=== PATIENT | female | born 2000 | race Caucasian/White ===

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

== ENCOUNTER 2021-05-07 16:37 | Emergency (ER) | payer OTHER ==
[~2021-05-07] VITALS: Ht 170.2 cm; Wt 54.8 kg
[2021-05-07 16:44] VITALS: BP 132/78
--- OUTSIDE RECORDS SUMMARY | 2021-05-07 16:44 | CCD ---
Author Author [facility] Organization [facility] Address Unknown Phone Unavailable Care Team Providers Care Harness Mender Name Role Phone MitulWilbur chowdhurynzie Unavailable PROBLEMS Type Condition ICD9-CM Code [id number] Code Onset Dates Condition S tatus W/U Status Risk SNOMED Code Notes Problem Complex cyst of right ovary N83.291 Active conf irmed [id number] Problem History of anemia Z86.2 Active confirmed 27 0237081 Problem Iron deficiency anemia, unspecified iron deficiency an emia type D50.9 Active confirmed 73089828 Problem Vitamin D deficiency E55.9 Active confirmed 50878868 ALLERGIES No Known Allergies ENCOUNTERS from 2001 to 2021-03-12 Encounter Location Date Provider Diagnosis [facility] [address] [facility] [phone] [place] [phone] Feb, Estela Bauman IMMUNIZATIONS Vaccine Route Administration Date Status Influenza Pharmacy Given Unknown Apr 02, 2019 Adminis tered SOCIAL HISTORY Tobacco Use: Social History Observation Description Date Details (start date - stop date) Never Smoker Sex Assigned At : Social History Observation Description Sex Assigned At Unknown Education: Question Answer Notes Level of Education: High School currently Audit Question Answer Notes Total Score: 0 Interpretation: Alcohol Education Language: Question Answer Notes Languages spoken: Thai Taoism: Question Answer Notes Taoism No sikh beliefs that would impact health care. Domestic Violence: Question Answer Notes Status: Single Sexual Hx: Question Answer Notes Had sex in the last 12 months (vaginal, oral, or anal)? No LMP: 10/01/2018 Have you ever had an STD? No Drug and Alcohol Question Answer Notes Total Score: 0 Interpretation: No problems reported Alcohol Screening: Question Answer Notes Did you have a drink containing alcohol in the past year? No Points 0 Interpretation Negative Tobacco Use: Question Answer Notes Are you a: never smoker never smoker REASON FOR REFERRAL No Information VITAL SIGNS No information MEDICATIONS Medication SIG (Take, Route, Frequency, Duration) Notes Start Da te End Date Status Ferrous Sulfate 325 (65 Fe) MG 1 tablet Orally Once a day for 30 day(s) Sep, Not-Taking Depo-Provera 150 MG/ML 1 ml Intramuscular for 30 day(s) q3 months Active Vitamin D 1000 UNIT 1 tablet Orally Once a day for 30 day(s) Not-Taking PROCEDURES No Information RESULTS No Results REASON FOR VISIT Letter for Supervisor [place] MEDICAL (GENERAL) HISTORY Type Description Date Medical History No overnight hospitalizations. Medical History Has history of sleep apnea t est in [place] because of snoring that self reports as normal Medical History No history of NICU stay or prematurity Surgical History No know Surgical history Goals Section No Information Health Concerns No Information MEDICAL EQUIPMENT No Information MENTAL STATUS No Information FUNCTIONAL STATUS No Information ASSESSMENTS No Information PLAN OF TREATMENT No Information Insurance Providers Payer Name Payer Address Payer Phone Insured Name Patient Relati onship to Insured Coverage Start Date Coverage End Date [facility] DEPT [facility] [phone] [id number] [phone] DELIO BURCIAGA self
--- OUTSIDE RECORDS SUMMARY | 2021-05-07 16:45 | CCD ---
Author Author [facility] Organization [facility] Address Unknown Phone Unavailable Care Team Providers Care Stationary Fireman Name Role Phone Nwogu, U Zac DO Unavailable Unavailable Nwogu, U Zac DO Unavailable Unavailable Nwogu, U Zac DO Unavailable Unavailable Nwogu, U Zac DO Unavailable Unavailable Nwogu, U Zac DO Unavailable Unavailable Nwogu, U Zac DO Unavailable Unavailable Nwogu, U Zac DO Unavailable Unavailable Nwogu, U Zac DO Unavailable Unavailable Nwogu, U Zac DO Unavailable Unavailable Nwogu, U Azc DO Unavailable Unavailable Nwogu, U Zac DO Unavailable Unavailable Nwogu, U Zac DO Unavailable Unavailable Nwogu, U Zac DO Unavailable Unavailable Nwogu, U Zac DO Unavailable Unavailable Nwogu, U Zac DO Unavailable Unavailable Nwogu, U Zac DO Unavailable Unavailable Nwogu, U Zac DO Unavailable Unavailable Nwogu, U Zac DO Unavailable Unavailable Nwogu, U Zac DO Unavailable Unavailable Nwogu, U Zac DO Unavailable Unavailable Nwogu, U Zac DO Unavailable Unavailable Nwogu, U Zac DO Unavailable Unavailable Nwogu, U Zac DO Unavailable Unavailable Nwogu, U Zac DO Unavailable Unavailable Nwogu, U Zac DO Unavailable Unavailable Nwogu, U Zac DO Unavailable Unavailable Nwogu, U Zac DO Unavailable Unavailable Nwogu, U Zac DO Unavailable Unavailable Nwogu, U Zac DO Unavailable Unavailable Nwogu, U Zac DO Unavailable Unavailable Nwogu, U Zac DO Unavailable Unavailable Nwogu, U Zac DO Unavailable Unavailable Nwogu, U Zac DO Unavailable Unavailable Nwogu, U Zac DO Unavailable Unavailable Nwogu, U Zac DO Unavailable Unavailable Nwogu, U Zac DO Unavailable Unavailable Nwogu, U Zac DO Unavailable Unavailable Nwogu, U Zac DO Unavailable Unavailable Nwogu, U Zac DO Unavailable Unavailable Nwogu, U Zac DO Unavailable Unavailable Faustino Mujica MD Unavailable Unavailable Faustino Mujica MD Unavailable Unavailable Faustino Mujica MD Unavailable Unavailable Faustino Mujica MD Unavailable Unavailable Faustino Mujica MD Unavailable Unavailable Faustino Mujica MD Unavailable Unavailable ZEGIL, D ALESSANDRA TITLE I MATH TUTOR Unavailable Unavailable ZEGIL, D ALESSANDRA TITLE I MATH TUTOR Unavailable Unavailable ZEGIL, D ALESSANDRA TITLE I MATH TUTOR Unavailable Unavailable Lor F Brown, F TITLE I MATH TUTOR TITLE I MATH TUTOR Unavailable Unavailable Lor F Brown, F TITLE I MATH TUTOR TITLE I MATH TUTOR Unavailable Unavailable Mitul, R Estela TITLE I MATH TUTOR Unavailable Unavailable Mitul, R Estela TITLE I MATH TUTOR Unavailable Unavailable Mitul, R Estela TITLE I MATH TUTOR Unavailable Unavailable Mtiul, R Estela TITLE I MATH TUTOR Unavailable Unavailable Mitul, R Estela TITLE I MATH TUTOR Unavailable Unavailable Mitul, R Estela TITLE I MATH TUTOR Unavailable Unavailable Mitul, R Estela TITLE I MATH TUTOR Unavailable Unavailable Mitul, R Estela TITLE I MATH TUTOR Unavailable Unavailable Mitul, R Estela TITLE I MATH TUTOR Unavailable Unavailable Mitul, R Estela TITLE I MATH TUTOR Unavailable Unavailable Mitul, R Estela TITLE I MATH TUTOR Unavailable Unavailable Mitul, R Estela TITLE I MATH TUTOR Unavailable Unavailable Mitul, R Estela TITLE I MATH TUTOR Unavailable Unavailable Mitul, R Estela TITLE I MATH TUTOR Unavailable Unavailable Mitul, R Estela TITLE I MATH TUTOR Unavailable Unavailable Mitul, R Estela TITLE I MATH TUTOR Unavailable Unavailable Mitul, R Estela TITLE I MATH TUTOR Unavailable Unavailable Mitul, R Estela TITLE I MATH TUTOR Unavailable Unavailable Mitul, R Estela TITLE I MATH TUTOR Unavailable Unavailable Mitul, R Estela TITLE I MATH TUTOR Unavailable Unavailable Mitul, R Estela TITLE I MATH TUTOR Unavailable Unavailable Mitul, R Estela TITLE I MATH TUTOR Unavailable Unavailable Mitul, R Estela TITLE I MATH TUTOR Unavailable Unavailable Mitul, R Estela TITLE I MATH TUTOR Unavailable Unavailable Mitul, R Estela TITLE I MATH TUTOR Unavailable Unavailable Mitul, R Estela TITLE I MATH TUTOR Unavailable Unavailable Mitul, R Estela TITLE I MATH TUTOR Unavailable Unavailable Mitul, R Estela TITLE I MATH TUTOR Unavailable Unavailable Mitul, R Estela TITLE I MATH TUTOR Unavailable Unavailable Mitul, R Estela TITLE I MATH TUTOR Unavailable Unavailable Mitul, R Estela TITLE I MATH TUTOR Unavailable Unavailable Mitul, R Estela TITLE I MATH TUTOR Unavailable Unavailable Mitul, R Estela TITLE I MATH TUTOR Unavailable Unavailable Mitul, R Estela TITLE I MATH TUTOR Unavailable Unavailable Mitul, R Estela TITLE I MATH TUTOR Unavailable Unavailable Mitul, R Estela TITLE I MATH TUTOR Unavailable Unavailable Mitul, R Estela TITLE I MATH TUTOR Unavailable Unavailable Mitul, R Estela TITLE I MATH TUTOR Unavailable Unavailable Mitul, R Estela TITLE I MATH TUTOR Unavailable Unavailable Mitul, R Estela TITLE I MATH TUTOR Unavailable Unavailable BROWN, TYLER LOR MARINE FUEL DOCK ATTENDANT Unavailable Unavailable BROWN, TYLER LOR MARINE FUEL DOCK ATTENDANT Unavailable Unavailable BROWN, TYLER LOR MARINE FUEL DOCK ATTENDANT Unavailable Unavailable BROWN, TYLER LOR MARINE FUEL DOCK ATTENDANT Unavailable Unavailable BROWN, TYLER LOR MARINE FUEL DOCK ATTENDANT Unavailable Unavailable BROWN, TYLER LOR MARINE FUEL DOCK ATTENDANT Unavailable Unavailable BROWN, TYLER LOR MARINE FUEL DOCK ATTENDANT Unavailable Unavailable BROWN, TYLER LOR MARINE FUEL DOCK ATTENDANT Unavailable Unavailable BROWN, TYLER LOR MARINE FUEL DOCK ATTENDANT Unavailable Unavailable BROWN, TYLER LOR MARINE FUEL DOCK ATTENDANT Unavailable Unavailable BROWN, TYLER LOR MARINE FUEL DOCK ATTENDANT Unavailable Unavailable BROWN, TYLER LOR MARINE FUEL DOCK ATTENDANT Unavailable Unavailable BROWN, TYLER LOR MARINE FUEL DOCK ATTENDANT Unavailable Unavailable BROWN, TYLER LOR MARINE FUEL DOCK ATTENDANT Unavailable Unavailable BROWN, TYLER LOR MARINE FUEL DOCK ATTENDANT Unavailable Unavailable BROWN, TYLER LOR MARINE FUEL DOCK ATTENDANT Unavailable Unavailable BROWN, TYLER LOR MARINE FUEL DOCK ATTENDANT Unavailable Unavailable BROWN, TYLER LOR MARINE FUEL DOCK ATTENDANT Unavailable Unavailable BROWN, TYLER LOR MARINE FUEL DOCK ATTENDANT Unavailable Unavailable BROWN, TYLER LOR MARINE FUEL DOCK ATTENDANT Unavailable Unavailable BROWN, TYLER LOR MARINE FUEL DOCK ATTENDANT Unavailable Unavailable BROWN, TYLER LOR MARINE FUEL DOCK ATTENDANT Unavailable Unavailable BROWN, TYLER LOR MARINE FUEL DOCK ATTENDANT Unavailable Unavailable BROWN, TYLER LOR MARINE FUEL DOCK ATTENDANT Unavailable Unavailable BROWN, TYLER LOR MARINE FUEL DOCK ATTENDANT Unavailable Unavailable BROWN, TYLER LOR MARINE FUEL DOCK ATTENDANT Unavailable Unavailable BROWN, TYLER LOR MARINE FUEL DOCK ATTENDANT Unavailable Unavailable BROWN, TYLER LOR MARINE FUEL DOCK ATTENDANT Unavailable Unavailable BROWN, TYLER LOR MARINE FUEL DOCK ATTENDANT Unavailable Unavailable BROWN, TYLER LOR MARINE FUEL DOCK ATTENDANT Unavailable Unavailable BROWN, TYLER LOR MARINE FUEL DOCK ATTENDANT Unavailable Unavailable BROWN, TYLER LOR MARINE FUEL DOCK ATTENDANT Unavailable Unavailable BROWN, TYLER LOR MARINE FUEL DOCK ATTENDANT Unavailable Unavailable BROWN, TYLER LOR MARINE FUEL DOCK ATTENDANT Unavailable Unavailable BROWN, TYLER LOR MARINE FUEL DOCK ATTENDANT Unavailable Unavailable BROWN, TYLER LOR MARINE FUEL DOCK ATTENDANT Unavailable Unavailable BROWN, TYLER LOR MARINE FUEL DOCK ATTENDANT Unavailable Unavailable BROWN, TYLER LOR MARINE FUEL DOCK ATTENDANT Unavailable Unavailable BROWN, TYLER LOR MARINE FUEL DOCK ATTENDANT Unavailable Unavailable BROWN, TYLER LOR MARINE FUEL DOCK ATTENDANT Unavailable Unavailable DEMARTINI, M SWAPNA PA Unavailable Unavailable DEMARTINI, M SWAPNA PA Unavailable Unavailable DEMARTINI, M SWAPNA PA Unavailable Unavailable DEMARTINI, M SWAPNA PA Unavailable Unavailable DEMARTINI, M SWAPNA PA Unavailable Unavailable DEMARTINI, M SWAPNA PA Unavailable Unavailable DEMARTINI, M SWAPNA PA Unavailable Unavailable DEMARTINI, M SWAPNA PA Unavailable Unavailable DEMARTINI, M SWAPNA PA Unavailable Unavailable DEMARTINI, M SWAPNA PA Unavailable Unavailable DEMARTINI, M SWAPNA PA Unavailable Unavailable DEMARTINI, M SWAPNA PA Unavailable Unavailable DEMARTINI, M SWAPNA PA Unavailable Unavailable DEMARTINI, M SWAPNA PA Unavailable Unavailable DEMARTINI, M SWAPNA PA Unavailable Unavailable DEMARTINI, M SWAPNA PA Unavailable Unavailable DEMARTINI, M SWAPNA PA Unavailable Unavailable DEMARTINI, M SWAPNA PA Unavailable Unavailable DEMARTINI, M SWAPNA PA Unavailable Unavailable DEMARTINI, M SWAPNA PA Unavailable Unavailable DEMARTINI, M SWAPNA PA Unavailable Unavailable DEMARTINI, M SWAPNA PA Unavailable Unavailable DEMARTINI, M SWAPNA PA Unavailable Unavailable DEMARTINI, M SWAPNA PA Unavailable Unavailable DEMARTINI, M WSAPNA PA Unavailable Unavailable DEMARTINI, M SWAPNA PA Unavailable Unavailable DEMARTINI, M SWAPNA PA Unavailable Unavailable DEMARTINI, M SWAPNA PA Unavailable Unavailable DEMARTINI, M SWAPNA PA Unavailable Unavailable DEMARTINI, M SWAPNA PA Unavailable Unavailable DEMARTINI, M SWAPNA PA Unavailable Unavailable DEMARTINI, M SWAPNA PA Unavailable Unavailable DEMARTINI, M SWAPNA PA Unavailable Unavailable DEMARTINI, M SWAPNA PA Unavailable Unavailable DEMARTINI, M SWAPNA PA Unavailable Unavailable DEMARTINI, M SWAPNA PA Unavailable Unavailable DEMARTINI, M SWAPNA PA Unavailable Unavailable DEMARTINI, M SWAPNA PA Unavailable Unavailable DEMARTINI, Ninoska BARCENAS PA Unavailable Unavailable DEMARTINI, Ninoska BARCENAS PA Unavailable Unavailable DEMARTINI, Ninoska BARCENAS PA Unavailable Unavailable DEMARTINI, Ninoska BARCENAS PA Unavailable Unavailable DEMARTINI, Ninoska BARCENAS PA Unavailable Unavailable DEMARTINI, Ninoska BARCENAS PA Unavailable Unavailable DEMARTINI, Ninoska BARCENAS PA Unavailable Unavailable Re-disclosure Warning The records that you are about to access may contain information from federally-assisted alcohol or drug abuse programs. If such information is present, then the following federally mandated warning applies: This information has been disclosed to you from records protected by federal confidentiality rules (42 CFR part 2). The federal rules prohibit you from making any further disclosure of this information unless further disclosure is expressly permitted by the written consent of the person to whom it pertains or as otherwise permitted by 42 CFR part 2. A general authorization for the release of medical or other information is NOT sufficient for this purpose. The Federal rules restrict any use of the information to criminally investigate or prosecute any alcohol or drug abuse patient.The records that you are about to access may contain highly sensitive health information, the redisclosure of which is protected by Article 27-F of the [facility] Public Health law. If you continue you may have access to information: Regarding HIV / AIDS; Provided by facilities licensed or operated by the [facility] Office of Mental Health; or Provided by the [facility] Office for People With Developmental Disabilities. If such information is present, then the following [facility] mandated warning applies: This information has been disclosed to you from confidential records which are protected by state law. State law prohibits you from making any further disclosure of this information without the specific written consent of the person to whom it pertains, or as otherwise permitted by law. Any unauthorized further disclosure in violation of state law may result in a fine or long term sentence or both. A general authorization for the release of medical or other information is NOT sufficient authorization for further disc losure. Allergies and Adverse Reactions Type Description Substance Reaction Status Data Source(s ) Propensity to adverse reactions NO KNOWN ALLERGIES NO KNOWN ALLERGIES [facility] Drug allergy Drug allergy No Known Allergies [facility] Family History Family Member Name Family Member Gender Family Member Status Date o f Status Description Data Source(s) Unknown Male Problem MEDENT ([facility]) Encounters Encounter Providers Location Date Indications Data Source(s ) Outpatient Attender: Zacyesenia Weaver DOConsultant: Estela Bauman [facility] 05/07/2021 10:52:00 AM EST - 05/07/2021 10:52:00 AM [facility] Outpatient Attender: Zac Meg DO Family Practice 04/19 10:00:00 AM EST [facility] ([facility]) Emergency Attender: Faustino Mujica MDConsultant: Estela Bauman [facility] 05/04/2021 12:12:00 PM EST - 05/04/2021 02:31:00 PM [facility] Patient discharged. Outpatient 04/01/2021 01:37:40 PM EDT - 021 02:47:53 PM EDT [facility] ([facility]) Unknown [id number] [facility] [facility] [address] [address] 03/10/2021 12:00:00 AM EDT eCW1 ([facility]) Outpatient Attender: LOR LUEVANO NP CPSCAORT-CPSGNOBG 02/17 10:33:00 AM EDT - 03/05/2021 10:34:00 AM EDT [facility] Patient discharged. Outpatient [id number] [facility] [place] [address] 01/25/2021 12:00:00 AM EDT eCW1 ([facility]) Outpatient Attender: LOR LUEVANO NP CPSCAORT-CPSGNOBG 11/18 01:19:00 PM EDT - 12/09/2020 01:20:00 PM EDT [facility] Patient discharged. Unknown [id number] [place] [address] 12/04/2020 12:00:00 AM EDT eCW1 ([facility]) Outpatient Attender: SWAPNA REYNA 11/27/2020 12:00: 00 AM [facility] Outpatient Attender: Estela Bauman FNPConsultant: Vickie WEN 10/28/2020 08:44:00 AM EDT - 10/28/2020 09:45:00 AM EDT [facility] Outpatient [id number] [place] [address] 10/26/2020 12:00:00 AM EDT eCW1 ([facility]) Outpatient Attender: LOR LUEVANO NP CPSCAORT-CPSGNOBG 08/18 01:38:00 PM EDT - 09/14/2020 01:39:00 PM EDT [facility] Patient discharged. Outpatient Attender: SWAPNA REYNA [id number] 08/27/2020 12:00:00 AM EST Sprain of other ligament of left ankle, initial encounter [facility] Sprain of other ligament of left ankle, initial encounter Outpatient Attender: SWAPNA REYNA 08/10/2020 12:00: 00 AM [facility] Outpatient Attender: SWAPNA REYNA 08/03/2020 12:00: 00 AM [facility] Outpatient Attender: SWAPNA REYNA [id number] 06/22/2020 12:00:00 AM EST Sprain of other ligament of left ankle, initial encounter [facility] Sprain of other ligament of left ankle, initial encounter Emergency Attender: ALESSANDRA WEN ED-ED 06/2020 08:08:00 PM EST - 06/19/2020 09:09:00 PM EST PAIN IN LEFT ANKLE [facility] PAIN IN LEFT ANKLE Patient discharged. Outpatient Attender: LOR LUEVANO NP CPSCAORT-CPSGNOBG 05/21 10:55:00 AM EST - 06/17/2020 10:56:00 AM EST [facility] Patient discharged. Outpatient CPSCAORT-LABEJN 03/27/2020 02:58:00 PM EDT [facility] Outpatient Attender: BEHZAD Luevano FNPAttender: LOR LUEVANO NP ED-LABPNP 03/27/2020 12:58:00 PM EDT - 03/27/2020 12:59:00 PM EDT Z113 [facility] Z113 Patient discharged. Outpatient Attender: LOR LUEVANO NP CPSCAORT-CPSGNOBG 02/2020 09:19:00 AM EDT - 03/27/2020 09:20:00 AM EDT [facility] Patient discharged. Immunizations Vaccine Date Status Description Data Source(s) COVID-19 VACCINE Cydney 11/26/2020 12:00:00 AM EDT completed [facility]SIIS Vaccine Series Complete: YESThis Data wa s Submitted to [facility] Via [employer]. Medications Medication Brand Name Start Date Product Form Dose Route Admi nistrative Instructions Pharmacy Instructions Status Indications Reaction Description Data Source(s) Levonorgestrel 0.542110 MG/HR Drug Implant [Mirena] Mirena ( 52 MG) 05/07/2021 12:00:00 AM EST active M EDENT ([facility]) Ibuprofen 600 MG Oral Tablet Ibuprofen 600 MG Oral Tab let (MOTRIN) Ibuprofen 600 MG Oral Tablet (MOTRIN) 06/22/2020 12:00:00 AM EST 600 mg Oral active Take 1 tablet by mouth every 8 (eight) h ours as needed for PainTake with food. [facility] Cyclobenzaprine hydrochloride 5 MG Oral Tablet Cyclobenzaprine HCl 5 MG Oral Tablet (FLEXERIL) Cyclobenzaprine HCl 5 MG Oral Tablet (FLEXERIL) 2020 12:00:00 AM EST active TAKE ONE TABLET BY MOUTH THREE TIMES A DAY NEEDED [facility] Cyclobenzaprine hydrochloride 5 MG Oral Tablet CYCLOBENZAPRI NE HCL 06/20/2020 12:00:00 AM EST tablet 15 TAKE ONE TABLET BY MOUTH THREE TIMES A DAY NEEDED TAKE ONE TABLET BY MOUTH THREE TIMES A DAY NEEDED SOLD: 06/22/2020 [facility] Insurance Providers Payer name Policy type / Coverage type Policy ID Covered democrat ID Covered democrat's relationship to dawson Policy Dawson Plan Information [employer] (HMO) [id number] Family Dependent [id number] [employer] (HMO) [id number] Family Dependent [id number] [employer] (HMO) [id number] Family Dependent [id number] [employer] (HMO) [id number] Family Dependent [id number] [employer] (HMO) [id number] Family Dependent [id number] [employer] (HMO) [id number] Family Dependent [id number] [employer] (HMO) [id number] Family Dependent [id number] [employer] (H[employer]) [id number] Family Dependent [id number] [employer] (HMO) [id number] Family Dependent [employer] (H[employer]) [id number] Family Dependent [id number] [employer] (H[employer]) [id number] Family Dependent [id number] [employer] (HMO) [id number] 24 [id number] Family Dependent [id number] [employer] (HMO) [id number] Family Dependent [id number] [employer] (HMO) [id number] 2.[id number] Family Dependent [id number] [employer] (H[employer]) [id number] Family Dependent [id number] [employer] (HMO) [id number] 24 [id number] Family Dependent [id number] o [employer] (HMO) [id number] 24 [id number] Family Dependent [id number] [facility] [employer] Health Maintenance Organization (HMO) [id number] Family Dependent [id number] [facility] [employer] Maintenance Organization (HMO) [id number] Family Dependent [id number] [facility] [employer] Maintenance Organization (HMO) [id number] Family Dependent [id number] [facility] [employer] Maintenance Organization (HMO) [id number] Family Dependent [id number] [facility] [employer] Maintenance Organization (HMO) [id number] [id number] Family Dependent [id number] [facility] [employer] Health Maintenance Organization (HMO) [id number] Family Dependent [id number] [facility] [employer] Maintenance Organization (HMO) [id number] Family Dependent [id number] [facility] [employer] Maintenance Organization (HMO) [id number] 2.16.84[id number] Family Dependent [id number] [facility] [employer] Maintenance Organization (HMO) [id number] 2.[id number] Family Dependent [id number] [facility] [employer] Organization (HMO) [id number] [id number] Family Dependent [id number] [facility] [employer] Maintenance Organization (HMO) [id number] Family Dependent [facility] [employer] Maintenance Organization (HMO) [id number] [id number] Family Dependent [id number] [facility] [employer] Health Maintenance Organization (HMO) [id number] 2.16.840.1.39[id number] Family Dependent [id number] [facility] [employer] Health Maintenance Organization (HMO) [id number] 2.16.840.1.10[id number] Family Dependent [id number] [facility] [employer] Health Maintenance Organization (HMO) [id number] 2.16.840.1.26[id number] Family Dependent [id number] [facility] [employer] Health Maintenance Organization (HMO) [id number] 2.16.840.1.06[id number] Family Dependent [id number] [facility] [employer] Maintenance Organization (HMO) [id number] 2.16.840.1.63[id number] Family Dependent [id number] [employer] [id number] 08.04.830.1.303839.3.227.99.4 [id number] Family Dependent [id number] [employer] [id number] 08.04.830.1.305900.3.227.99.4 [id number] Family Dependent [id number] [employer] [id number] 08.04.830.1.766311.3.227.99.4 [id number] Family Dependent [id number] [employer] [id number] 08.04.830.1.822431.3.227.99.4 [id number] Family Dependent [id number] [employer] [id number] 08.04.830.1.864708.3.227.99.4 [id number] Family Dependent [id number] [employer] [id number] 08.04.830.1.107106.3.227.99.4 [id number] Family Dependent [id number] [employer] [id number] 08.04.830.1.071891.3.227.99.4 [id number] Family Dependent [id number] [employer] [id number] 08.04.830.1.679959.3.227.99.4 [id number] Family Dependent [id number] [employer] [id number] 08.04.830.1.762715.3.227.99.4 [id number] Family Dependent [id number] [employer] [id number] 08.04.830.1.548204.3.227.99.4 [id number] Family Dependent [id number] [employer] [id number] 08.04.830.1.342715.3.227.99.4 [id number] Family Dependent [id number] [employer] [id number] 2.840.1.001211.3.227.99.4 [id number] Family Dependent [id number] [employer] [id number] 2.840.1.468090.3.227.99.4 [id number] Family Dependent [id number] [employer] [id number] 2.840.1.288662.3.227.99.4 [id number] Family Dependent [id number] [employer] [id number] 2.840.1.160919.3.227.99.4 [id number] Family Dependent [id number] [employer] [id number] 2.0.1.559682.3.227.99.4 [id number] Family Dependent [id number] [place] [employer] Commercial [id number] Family Dependent LUCHO I [id number] Self [id number] LU[place] I [id number] Self [id number] [facility] [id number] S [id number] [place] I [id number] Self [id number] clinovo [id number] Family Dependent [id number] clinovo [id number] Family Dependent [id number] [place] [employer] Health Maintenance Organization (O) [id number] Self [id number] [place] [employer] Health Maintenance Organization (O) [id number] Self [id number] [place] [employer] Health Maintenance Organization (O) [id number] Self [id number] [place] [facility] [facility] Health Maintenance Organization (O) [id number] Self [id number] [place] [employer] Health Maintenance Organization (HMO) [id number] Self [id number] [place] [facility] [facility] Health Maintenance Organization (HMO) [id number] Self [id number] [facility] [place] [id number] S [id number] [place] [employer] [id number] Self [id number] [facility] Community Plan Health Maintenance Organization (HMO) [id number] Family Dependent Ranjan Burciaga [id number] ANSI-Commercial [id number] [place] [place] [id number] S [id number] [place] [employer] Commercial [id number] Family Dependent Ranjan Burciaga [id number] [facility] BLUE [id number] SP [id number] [facility] [place] [id number] S [id number] [facility] [address] [id number] SP [id number] [place] [id number] SP [id number] 200 BLUE CROSS JETER PLAN [id number] SP [id number] ANSI-Commercial [id number] ANSI-Commercial [id number] [facility] OF [place] -OP [id number] 18 [id number] ANSI-Commercial [id number] [facility] [facility] [id number] 18 [id number] [place] Medicaid/CHP/FHP Medigap Part B [id number] Self [id number] [place] Medicaid/CHP/FHP Medigap Part B [id number] Self [id number] ANSI-Commercial [id number] ANSI-Commercial [id number] Hmo Blue Option Health Maintenance Organization (HMO) [id number] Family Dependent Ranjan Xiao Marjanagathachristel [id number] Pupil Benefits (pr) Commercial ~~08/22/18 [id number] Self ~~08/22/18 [place] Medicaid/CHP/FHP Medigap Part B [id number] Self [id number] Problems, Conditions, and Diagnoses Code Display Name Description Problem Type Effective Dates Data Source(s) N3001 Acute cystitis with hematuria Acute cystitis with lavinia turia Diagnosis 05/04/2021 12:12:00 PM [facility] N938 Other specified abnormal uterine and vag inal bleeding Other specified abnormal uterine and vaginal bleeding Diagnosis 05/04/2021 12:12:00 PM [facility] N939 Abnormal uterine and vaginal bleeding, u nspecified Abnormal uterine and vaginal bleeding, unspecified Diagnosis 05/04/2021 12:12:[address] 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 and certain disorders involving the immune mechanism 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 and certain disorders involving the immune mechanism Diagnosis 10/28/2020 08:44:00 AM [facility] M76.72 Peroneal tendinitis, left leg Peroneal tendinitis, lef t leg Diagnosis 08/27/2020 02:44:33 PM [facility] S93.492A Sprain of other ligament of left ankle, initial encounter Sprain of other ligament of left ankle, initial encounter Diagnosis 2020 02:44:33 PM [facility] Z86.2 [id number] History of anemia Problem 10/26/2020 12:00:0 0 AM EDT eCW1 ([facility]) Surgeries/Procedures Procedure Description Date Indications Data Source(s) OFFICE OUTPATIENT NEW 30 MINUTES 05/07/2021 12:00:00 A M ARTEM ZELAYA ([facility]) THERAPEUTIC PROPHYLACTIC/DX INJECTION SUBQ/IM THER/PROPH/NEPTALI G INJ SC/IM 03/05/2021 12:00:00 AM [facility] Injection, medroxyprogesterone acetate, 1 mg 12:00:00 AM [facility] Results ID Date Data Source [id number] 05/04/2021 12:12:00 PM [facility] 1 OrderSheet [facility] [address] [place] [address] Phone #: [phone] mlr- [phone] 05/04/2021 12:11 Patient: DELIO BURCIAGA Sex: F : 2000 Age: 20yWEIGHT:56.6 kg (S) HEIGHT:67 inches (S) BMI:19.6ALLERGIES: No Known Drug AllergyCHIEF COMPLAINT: vag bleedingDIAGNOSIS: Urinary tract infectious disease, Dysfunctional uterine bleedingLAB ORDERSOrder Description Priority Entered Acknowledged InitialedUA Reflex to UA STAT 13:50 05/04/2021 13:53 Rogelio Lopez R.N.;HCG Urine Qual STAT 13:50 05/04/2021 13:53 Alma Lopez R.N.;DIAGNOSTIC STUDY ORDERSOrder Description Priority Entered Acknowledged InitialedMEDICATION/IV/DRIP/FLUID ORDERSOrder Description Priority Entered Acknowledged InitialedGENERAL ORDERSOrder Description Priority Entered Acknowledged Initialed[Electronically signed by Alma Lopez R.N. (14:31 05/04/2021)][Electronically signed by Sin Salinas (21:57 05/04/2021)][Electronically locked by Alma Lopez R.N. (14:31 05/04/2021)] Name Value Range Interpretation Code Description Data Audrey rce(s) Supporting Document(s) ID Date Data Source [id number] 05/04/2021 12:12:00 PM EST [facility] 1 Medication Reconciliation Report [facility] [address] [place] [address] Phone #: ext- [phone] 05/04/2021 12:11 Patient: DELIO BURCIAGA Sex: F : 2000 Age: 20yWeight: 56.6 kgHeight/Length: 67 in.BMI: 19.6ALLERGIES: No Known Drug AllergyThe patient's Home Medications are listed below:THE FOLLOWING MEDICATIONS NEED TO BE RECONCILED: Depo-Provera IntramuscularThe source(s) of the original Home Medication information:Not obtained.The following Medications were given to the patient in the Emergency Department:None.The following Medications were prescribed to the patient:ibuprofen 400 mg tablet Take 1 tablet every eight hours as needed for pain for 10 days -- for pain / fever.Dispense 30 tablet. Refills: 0. Substitution permitted.Pharmacy - [facility] [address] ; [place] [address]. .cephalexin 500 mg tablet Take 1 tablet three times a day for 7 days -- Dispense 21 tablet. Refills: 0.Substitution permitted.[facility] [address] - [address] ; [place] [address]. . -- AXEL Barnett Name Value Range Interpretation Code Description Data Audrey e(s) Supporting Document(s) ID Date Data Source [id number] 05/04/2021 12:12:00 PM [facility] 1 Medication Administration Record [facility] [address] [place] [address] Phone #: ext- [phone] 12:11 Patient: DELIO BURCIAGA Sex: F : 2000 Age: 20yWeight: 56.6 kgHeight/Length: 67 inBMI: 19.6ALLERGIES: No Known Drug AllergyDate/Time Medication Administered Medication Ordered Name Value Range Interpretation Code Description Data Audrey rce(s) Supporting Document(s) ID Date Data Source [id number] 05/04/2021 12:12:00 PM EST [facility] 1 General Instructions [facility] [address] [place] [address] Phone #: ext- [phone] 05/04/2021 12:11 Patient: DELIO BURCIAGA Sex: F : 2000 Age: 20yMild dysfunctional uterine bleeding.Acute urinary tract infection with cystitis and hematuria.INSTRUCTIONSWarnings: Further evaluation is necessary. It is very important to follow up with a healthcare provider.GENERAL WARNINGS: Return or contact your physician immediately if your condition worsens orchanges unexpectedly, if not improving as expected, or if other problems arise. Specifically return ifbleeding worsens.Prescription Medications:ibuprofen 400 mg tablet Take 1 tablet every eight hours as needed for pain for 10 days -- for pain / fever.Dispense 30 tablet. Refills: 0. Substitution permitted.Pharmacy - [facility] [address] ; [place] [address]. .cephalexin 500 mg tablet Take 1 tablet three times a day for 7 days -- Dispense 21 tablet. Refills: 0.Substitution permitted.[facility] [address] ; [place] [address]. .Follow-up:Follow up with your doctor if not better. Reason for referral: evaluation and treatment. Summary of careprovided to patient.Understanding of the discharge instructions verbalized by patient. ADDITIONAL INFORMATIONDysfunctional Uterine Bleeding 2 General Instructions [facility] [address] [place] [address] Phone #: ext- [phone] 05/04/2021 12:11 Patient: DELIO BURCIAGA Sex: F : 2000 Age: 20yDysfunctional uterine bleeding, also called abnormal uterine bleeding, is a condition in which bleedingis abnormal and occurs at unexpected times of the month. This happens because of changes in thehormones that help control a woman's menstrual cycle each month.The bleeding may be heavier or hoop machine operator than normal. If you have heavy bleeding often, this can lead toa problem called anemia. With anemia, your red blood cell count is too low. Red blood cells help carryoxygen throughout your body. Severe anemia may cause you to look pale and feel very weak or tired.You might also become short of breath easily.To treat dysfunctional uterine bleeding, medicines are often tried first. If these don't help, or if youhave additional symptoms or have reached menopause, further testing and treatments may beneeded. Discuss all of your options with your provider.Home careMedicinesIf you're prescribed medicines, be sure to take them as directed. Some of the more commonmedicines you may be prescribed include: Hormone therapy (Options include most methods of hormonal control such as pills, shots, or a hormone-releasing IUD) Nonsteroidal anti-inflammatory drugs (NSAIDs), such as ibuprofen Iron supplements, if you have anemiaGeneral care Get plenty of rest if you tire easily. Avoid heavy exertion. 3 General Instructions [facility] [address] [place] [address] Phone #: ext- [phone] 05/04/2021 12:11 Patient: DELIO BURCIAGA Sex: F : 2000 Age: 20y To help relieve pain or cramping that may occur with bleeding, try using a heating pad on the lower belly or back. A warm bath may also help.Follow-up careFollow up with your healthcare provider, or as directed.When to seek medical adviceCall your healthcare provider right away if: Bleeding becomes heavy (soaking 1 pad or tampon every hour for 3 hours) Increased abdominal pain Irregular bleeding worsens or does not get better even with treatment Fever of 100.4F (38C) or higher, or as directed by your provider Signs of anemia, such as pale skin, extreme fatigue or weakness, or shortness of breath Dizziness or fainting [employer]. [address] [place] [address]. All rights reserved. This information is not intended as asubstitute for professional medical care. Always follow your healthcare professional's instructions. You have been given the following additional information: Dysfunctional Uterine Bleeding(Electronically signed by AXEL Barnett 05/04/2021 21:57) Name Value Range Interpretation Code Description Data Audrey rce(s) Supporting Document(s) ID Date Data Source [id number] 05/04/2021 12:12:00 PM EST [facility] 1 Clinical Report - Nurses [facility] [address] [place] [address] Phone #: [phone]- [phone] 05/04/2021 12:11 Patient: DELIO BURCIAGA Sex: F : 2000 Age: 20yTRIAGEArrived by private vehicle. Historian: patient. Accompanied by friend.Acuity: LEVEL 3.Chief Complaint: ABDOMINAL PAIN and VAGINAL BLEEDING (passed a clot last night).This started yesterday. ( pt states she has finished her cycle a week ago and starting yesterday sheexperienced vaginal bleeding again, she voices she passed a clot yesterday and today she already hasused a tampon and a panty liner, voices lower abdominal pain).Treatment CENTRAL OFFICE INSTALLER:None.SEPSIS SCREEN: SIRS SCREEN NEGATIVE. SEPSIS SCREEN NEGATIVE. No suspected or confirmedsigns of infection present.DIONNE COMA SCORE: 15- eyes open- spontaneous (4); best verbal response- oriented (5); bestmotor response- obeys commands (6). --12:05/04/21 Jamie Delacruz RN12:05/04/21. BP: 116/78. MAP: 90. HR: 91. RR: 16. O2 saturation: 100%. Temp: 98.2 F (oral). Painlevel now: 11/26. --12:05/04/21 Jamie Delacruz RN.Weight: 56.6 kg stated. Height/Length: 67 inches Per Patient. BMI: 19.6. --12:15 05/04/21 Jamie Delacruz RN.MedicationsDepo- Provera Intramuscular. --12:18 05/04/21 Jamie Delacruz RN.AllergiesNo Known Drug Allergy. --12:05/04/21 Jamie Delacruz RN.PROBLEMS:no known problems.ADDITIONAL SURGERIES:no known surgeries.HistoryPAST MEDICAL HX: Immunizations: up-to-date. Last normal menstrual period- 2 weeks ago. Uses depoinjections. 2 Clinical Report - Nurses [facility] [address] [place] [address] Phone #: ext- [phone] 05/04/2021 12:11 Patient: DELIO BURCIAGA Sex: F : 2000 Age: 20y SOCIAL HX: Never smoker. Occasional drug use: marijuana. No alcohol use. No recent travel. No known contact with a sick individual. She was offered HIV testing but declined and hepatitis C testing but declined. She has not traveled outside the [place] Infectious disease exposure: No infectious disease exposure. The patient was not exposed to Coronavirus. (vaccinated for Covid). SELF HARM ASSESSMENT: Self harm assessment was performed. The patient answered "no" to the question(s) "Have you recently felt down, depressed, or hopeless?", "Do you have thoughts of harming or killing yourself?", "Do you have a plan for harming or killing yourself?", "Have you recently had thoughts about harming or killing others?", "Do you have any dangerous items in your possession?", "Have you noticed less interest or pleasure in doing things?", "Are you here because you tried to hurt yourself?" and "Have you ever tried to hurt yourself before today?". ABUSE ASSESSMENT: No report of abuse. NUTRITIONAL RISK ASSESSMENT: The nutritional risk assessment revealed no deficiencies. FUNCTIONAL ASSESSMENT: Functional assessment: no impairments noted. LEARNING NEEDS ASSESSMENT: The learning needs assessment revealed no barriers. FALL RISK ASSESSMENT: Fall risk assessment completed. No risk factors identified. SKIN INTEGRITY ASSESSMENT: Skin integrity risk assessment completed. No skin integrity risk identified. --12:05/04/21 Jamie Delacruz RN. Interventions Identification band on patient. To waiting room. --12:05/04/21 Jamie Delacruz RN.PHYSICAL ASSESSMENTGENERAL / NEURO / PSYCH: Alert. Oriented X 4. Appears in no acute distress.HEENT: Mucous membranes are pink.RESPIRATORY: Respirations not labored. Breath sounds within normal limits.CVS: Normal sinus rhythm noted. Capillary refill less than 2 seconds.GI / : Abdomen soft and nontender. Bowel sounds within normal limits. ( vaginal bleeding scantamount).SKIN: Skin is warm and dry. --13:51 05/04/21 Alma Lopez R.N.NURSING PROGRESS NOTESPatient gowned. Reassurance given. Two patient identifiers checked. Call light placed in reach. Siderails up x 2. Bed placed in lowest position. Brakes of bed on. Patient ready for evaluation. --13: Alma Lopez R.N. Patient ID band checked for patient name and birthdate: patient confirmed. Instructions provided to collect 3 Clinical Report - Nurses [facility] [address] [place] [address] Phone #: ext- [phone] 05/04/2021 12:11 Patient: DELIO BURCIAGA Sex: F : 2000 Age: 20y clean catch urine and patient verbalized understanding. Clean catch urine collected; sample sent to lab for urinalysis. Specimen labeled in the presence of the patient. --13:53 05/04/21 Alma Lopez R.N. 14:00 05/04/21. BP: 124/79. MAP: 94. HR: 68. RR: 15. O2 saturation: 100%. --14:18 05/04/21 [facility]GE 14:27 05/04/21. BP: 125/79. HR: 66. RR: 16. O2 saturation: 100%. Temp: 99.1 F. Pain level now 10. --14:27 05/04/21 [facility] Condition at departure: unchanged. No learning barriers present. Discharge instructions provided and reviewed with the patient. Reviewed medication(s) side effects, precautions, dosing and course information. Prescription(s) given to the patient and sent electronically to pharmacy. Patient verbalized understanding. Written instructions provided in Burkinan. The patient was discharged home and unaccompanied at time of discharge. She left ambulatory and via private vehicle. Patient driving. --14:30 05/04/21 Alma Lopez R.N. Departure time: 14:31 05/04/2021. --14:31 05/04/21 Alma Lopez R.N.Locked/Released at 05/04/2021 14:31 by Alma Lopez R.N. Name Value Range Interpretation Code Description Data Audrey rce(s) Supporting Document(s) ID Date Data Source [id number] 05/04/2021 12:12:00 PM [facility] 1 Clinical Report - Physicians/Mid Levels [facility] [address] [place] [address] Phone #: ext- [phone] 05/04/2021 12:11 Patient: DELIO BURCIAGA Sex: F : 2000 Age: 20y Time Seen: 13:40 05/04/2021. Arrived- By private vehicle. Historian- patient.HISTORY OF PRESENT ILLNESS Chief Complaint: VAGINAL BLEEDING. This started last night pt states she has finished her cycle a week ago and starting yesterday she experienced vaginal bleeding again, she voices she passed a clot yesterday and today she already has used a tampon and a panty liner, voices lower abdominal pain and still present. It was abrupt in onset and has been constant. The symptoms are described as mild. The patient has had abnormal bleeding. No abdominal pain, pelvic pain, vaginal pain, low back pain or flank pain. No pain with urination, urinary frequency, urgency of urination or hematuria. Last normal menstrual period- 2 weeks ago. Uses depo injections. Sexually active. control measures utilized. Similar symptoms previously. None. Recent medical care: Not recently seen/assessed.REVIEW OF SYSTEMSNo nausea, vomiting, diarrhea, black stools or headache. No fever, chills, anorexia, eye discomfort orsore throat. No cough, difficulty breathing, chest pain, skin rash or enlarged lymph nodes. No joint pain.PAST HISTORYProblems:no known problems. Additional Surgeries: no known surgeries. Medications: Depo- Provera Intramuscular. Allergies: No Known Drug Allergy.SOCIAL HISTORYNever smoker. No alcohol use or drug use.PHYSICAL EXAMVital Signs: 05/04/2021 12:16 BP: 116/78. MAP: 90. HR: 91. RR: 16. O2 saturation: 100%. Temp: 98.2 F. 2 Clinical Report - Physicians/Mid Levels [facility] [address] [place] [address] Phone #: ext- [phone] 05/04/2021 12:11 Patient: DELIO BURCIAGA Sex: F : 2000 Age: 20y Pain level now: 11/26. Have been reviewed as normal. Oxygen saturation normal. Appearance: Alert. Oriented X3. No acute distress. HEENT: Normal external inspection. ENT: Pharynx normal. Neck: Neck supple. CVS: Heart sounds normal. Respiratory: No respiratory distress. Breath sounds normal. Abdomen: Soft and nontender. Bowel sounds normal. No mass. Skin: Skin warm and dry. Normal skin color. No rash. Normal skin turgor. Extremities: Extremities nontender. No lower extremity edema. Neuro: Oriented X 3.LABS, X- RAYS, AND EKGLaboratory Tests: Laboratory tests have been ordered, with results reviewed and considered in themedical decision making process. UA REFLEX TO UA CULTURE: (NITESH: 05/04/2021 13:50) ( [facility]04[facility] 14:06) Final results Test Result Flag Units (Reference) UA REFLEX TO UA CULTURE URINALYSIS SOURCE R COLOR yellow (NORMAL: Yello CLARITY turbid (NORMAL: Clear SPEC GRAVITY 1.020 (1.001 - 1.030 pH 8 (5 - 9) GLUCOSE NORM (NORMAL: Negat BILIRUBIN NEG (NORMAL: Negat KETONE NEG (NORMAL: Negat PROTEIN NEG (NORMAL: Negat NITRITE NEG (NORMAL: Negat BLOOD 10 A (NORMAL: Negat LEUK EST 100 A (NORMAL: Negat UROBILINOGEN 4 (less than 1.0 MICROSCOPIC See Below WBC 3 - 5 (NORMAL: NONE RBC 1 - 3 (NORMAL: NONE EPITHELIAL FEW (NORMAL: NONE BACTERIA Trace (NORMAL: NONE AMORPH SED 3+ (NORMAL: NONE Beta-HCG, Qual Urine: (NITESH: 05/04/2021 13:50) ( [facility] 05/04/2021 14:07) Final results Test Result Flag Units (Reference) HCG URINE QUAL NEGATIVE (NORMAL: NEGAT HCG URINE QL REENTER NEGATIVE (NORMAL: NEGAT { KIT LOT # [id number] ){ KIT EXP DATE 01.31.23 ){ PROCEDURAL CONTROL VALID ).PROGRESS AND PROCEDURES 3 Clinical Report - Physicians/Mid Levels [facility] [address] [place] [address] Phone #: ext- [phone] 05/04/2021 12:11 Patient: DELIO BURCIAGA Sex: F : 2000 Age: 20y Course of Care: 14:May 04 2021. Evaluation after observation and results of tests back. (Discussed abnormal bleeding, UA and neg and pt is agreeable with dx and tx plan.). Patient counseled in person regarding the patient's stable condition, test results, diagnosis and need for follow-up. Patient agrees with plan of care. 14:May 04 2021. Disposition: Discharged home in good and improved condition (14:May 04 2021).CLINICAL IMPRESSION Mild dysfunctional uterine bleeding. Acute urinary tract infection with cystitis and hematuria.INSTRUCTIONS Warnings: Further evaluation is necessary. It is very important to follow up with a healthcare provider. GENERAL WARNINGS: Return or contact your physician immediately if your condition worsens or changes unexpectedly, if not improving as expected, or if other problems arise. Specifically return if bleeding worsens. Prescription Medications: ibuprofen 400 mg tablet Take 1 tablet every eight hours as needed for pain for 10 days -- for pain / fever. Dispense 30 tablet. Refills: 0. Substitution permitted. Pharmacy - [facility] [address] ; [place] [address]. Phone: . cephalexin 500 mg tablet Take 1 tablet three times a day for 7 days -- Dispense 21 tablet. Refills: 0. Substitution permitted. [facility] [address] ; [place] [address]. . Follow-up: Follow up with your doctor if not better. Reason for referral: evaluation and treatment. Summary of care provided to patient. Understanding of the discharge instructions verbalized by patient.(Electronically signed by AXEL Barnett 05/04/2021 21:57) 4Clinical Report - Physicians/Mid Levels [facility] [address] [place] [address] Phone #: for- [phone] 05/04/2021 12:11 Patient: DELIO BURCIAGA Sex: F : 2000 Age: 20y Name Value Range Interpretation Code Description Data Audrey rce(s) Supporting Document(s) ID Date Data Source [id number] 05/04/2021 02:07:00 PM EST [facility] Name Value Range Interpretation Code Description Data Audrey rce(s) Supporting Document(s) HCG URINE QUAL NEGATIVE NORMAL: NEGATIVE [facility] HCG URINE QL REENTER NEGATIVE NORMAL: NEGATIVE [facility] { KIT LOT # [id number] ){ KIT EXP DATE 07.19.22 ){ PROCEDURAL CONTROL VALID ) ID Date Data Source [id number] 05/04/2021 02:05:00 PM [facility] Name Value Range Interpretation Code Description Data Audrey rce(s) Supporting Document(s) UA REFLEX TO UA CULTURE [facility] URINALYSIS SOURCE R [facility] Hospit al COLOR yellow NORMAL: Yellow [facility] CLARITY turbid NORMAL: Clear [facility] Specific gravity of Urine by Test strip 1.020 1.001 - 1.030 [facility] pH 8 5 - 9 [facility] al Glucose [Mass/volume] in Urine by Test strip NORM NORMAL: Negat jeffery [facility] Bilirubin.total [Presence] in Urine by Test strip NEG NORMAL: Negative [facility] Ketones [Presence] in Urine by Test strip NEG NORMAL: Negative [facility] Protein [Mass/volume] in Urine by Test strip NEG NORMAL: Negat jeffery [facility] Nitrite [Presence] in Urine by Test strip NEG NORMAL: Negative [facility] BLOOD 10 NORMAL: Negative [facility] Leukocyte esterase [Presence] in Urine by Test strip 100 [place] L: Negative [facility] Urobilinogen [Mass/volume] in Urine by Test strip 4 less john n 1.0 mg/dL [facility] MICROSCOPIC See Below [facility] ital WBC 3 - 5 NORMAL: NONE SEEN [facility] Erythrocytes [#/volume] in Urine by Test strip 1 - 3 NORMAL: NON E SEEN [facility] EPITHELIAL FEW NORMAL: NONE SEEN [facility] Bacteria [Presence] in Urine sediment by Light microscopy Tr santos NORMAL: NONE SEEN [facility] Amorphous sediment [Presence] in Urine sediment by Light jerry roscopy 3+ NORMAL: NONE SEEN [facility] ID Date Data Source [id number] 04/01/2021 02:45:00 PM EDT [facility] Name Value Range Interpretation Code Description Data Audrey rce(s) Supporting Document(s) SARS-CoV-2 RNA Resp Ql ELIDA+probe NOT DETECTED [facility] This lab was ordered by KAMERON nobles and reported by KAMERON Severino. ID Date Data Source [id number] 10/28/2020 09:47:00 AM EDT [facility] Name Value Range Interpretation Code Description Data Audrey rce(s) Supporting Document(s) Ferritin [Mass/volume] in Serum or Plasma 23.3 ng/mL 3.0 - 105 [facility] ID Date Data Source [id number] 10/28/2020 09:07:00 AM EDT [facility] Name Value Range Interpretation Code Description Data Audrey rce(s) Supporting Document(s) CBC W/AUTOMATED DIFF [facility] COMPLETE BLOOD COUNT Leukocytes [#/volume] in Blood by Automated count 4.5 10^3/uL 4.2 - 1 1.0 [facility] Erythrocytes [#/volume] in Blood by Automated count 4.67 10^6/uL 4. 20 - 5.40 [facility] Hemoglobin [Mass/volume] in Blood 13.2 g/dL 12.0 - 16.0 [facility] Hematocrit [Volume Fraction] of Blood by Automated count 40.4 % 3 7.0 - 47.0 [facility] Erythrocyte mean corpuscular volume [Entitic volume] by Auto mated count 86.5 fL 81.0 - 101 [facility] Erythrocyte mean corpuscular hemoglobin [Entitic mass] by Automated count 28.3 pg 27.0 - 34.0 [facility] Erythrocyte mean corpuscular hemoglobin concentration [Mass/volume] by Automated count 32.7 g/dL 31.0 - 36.0 [facility] Erythrocyte distribution width [Ratio] by Automated count 13.1 % 11.5 - 14.5 [facility] Platelets [#/volume] in Blood by Automated count 232 10^3/uL 150 - 45 0 [facility] Platelet mean volume [Entitic volume] in Blood by Automated count 11.0 fL 7.4 - 10.4 H [facility] Neutrophils/100 leukocytes in Blood by Automated count 49.4 % 37. 0 - 80.0 [facility] Lymphocytes/100 leukocytes in Blood by Manual count 40.9 % 25.0 - 40.0 H [facility] Monocytes/100 leukocytes in Blood by Automated count 7.7 % 3.0 - 8.0 [facility] Eosinophils/100 leukocytes in Blood by Automated count 1.1 % 0.0 - 7.0 [facility] Basophils/100 leukocytes in Blood by Automated count 0.7 % 0.0 - 2.5 [facility] %IG 0.2 % 0.0 - 0.0 [facility] %NRBC 0.0 % 0.0 - 0.0 [facility] al Neutrophils [#/volume] in Blood by Automated count 2.23 10^3/uL 2.00 - 6.90 [facility] Lymphocytes [#/volume] in Blood by Automated count 1.85 10^3/uL 0.60 - 3.40 [facility] Monocytes [#/volume] in Blood by Automated count 0.35 10^3/uL 0.00 - 0.90 [facility] Eosinophils [#/volume] in Blood by Automated count 0.05 10^3/uL 0.00 - 0.70 [facility] Basophils [#/volume] in Blood by Automated count 0.03 10^3/uL 0.00 - 0.20 [facility] #IG 0.01 10^3/uL 0.00 - 0.10 [facility] #NRBC 0.00 10^3/uL 0.00 - 0.00 [facility] MANUAL DIFF NOT INDICATED [facility] RBC MORPH NOT INDICATED [facility] ID Date Data Source [id number] 08/27/2020 03:18:12 PM [facility] Name Value Range Interpretation Code Description Data Audrey rce(s) Supporting Document(s) Progress Note [facility] [id number]hVJoJlDlKxOtVq lbm [file] [id number]KcaOVRXVn6V ID Date Data Source [id number] 06/22/2020 12:56:45 PM [facility] Name Value Range Interpretation Code Description Data Audrey rce(s) Supporting Document(s) Progress Note [facility] [id number]5dW3iWLF9OWaHOoZoVfTwHPP9 lbm [file] [id number]+slw9lz9Syv4LaG536F6vfksFnNasXajCft/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 Name Value Range Interpretation Code Description Data Audrey rce(s) Supporting Document(s) Progress Note [facility] [id number] lbm [file] [id number]== ID Date Data Source [id number] 06/20/2020 12:55:00 PM [facility] Imaging Services Department Imaging Report [address] [address] %(RAD)RES..mtdd.print.filter("line") Name: DELIO BURCIAGA : 2000 Age/Sex: 19F Ordering Provider: BEHZAD Cohen Med Rec #: [id number] Reg Status: [facility] Room #: Date of Service: 06/19/20 Report Number: [id number] cc:PCP None Send Report To: [id number] XRP/XR Ankle Lt Min. 3 Views Reason for exam: pain FINDINGS/IMPRESSION: There is no fracture or dislocation. No significant degenerative changes. No joint effusions. Time portable performed: Fluoroscopy time in seconds: Number of Exposures: Contrast Agent in ml: Method of Administration: REPORT SIGNATURE ON FILE Reported By: Ventura Faustin MD <Electronically signed by Ventura Faustin MD> 06/22/20 0944 Dictation Date/Time: 06/20/20 0936 Transcribed Date/Time: 06/20/20 1255 Electronic Development Technician: ASA Name Value Range Interpretation Code Description Data Audrey rce(s) Supporting Document(s) ID Date Data Source [id number] 03/31/2020 01:40:00 PM EDT [facility] Name Value Range Interpretation Code Description Data Audrey rce(s) Supporting Document(s) Chlamydia,Urine result Negative Normal (applies to non-n umeric results) [facility] Test Performed By: [facility] [address] [place] [address] Director: Asya Jacobo MD . GC Urine result Negative Normal (applies to non-numeric results) [facility] Test Performed By: [facility] [address] [place] [address] Director: Asya Jacobo MD . Methodology: Second generation nucleic acid amplification. ID Date Data Source [id number] 03/31/2020 12:52:00 PM EDT [facility] Name Value Range Interpretation Code Description Data Audrey rce(s) Supporting Document(s) Chlamydia,Urine Negative Normal (applies to non-numeric results) [facility] Test Performed By: [facility] [address] [place] [address] Director: Asya Jacobo MD . GC Urine Negative Normal (applies to non-numeric resul ts) [facility] Test Performed By: [facility] [address] [place] [address] Director: Asya Jacobo MD . Methodology: Second generation nucleic acid amplification. Procedure Social History Code Duration Value Status Description Data Source(s ) Smoking 03/09/2021 12:00:00 AM EDT Never Smoker completed Never S moker eCW1 ([facility]) Smoking 01/25/2021 12:00:00 AM EDT Never Smoker completed Never S moker eCW1 ([facility]) Smoking 10/26/2020 12:00:00 AM EDT Never Smoker completed Never S moker eCW1 ([facility]) Smoking 10/26/2020 12:00:00 AM EDT Never Smoker completed Never S [facility] [place] [place] eCW1 ([facility]) Alcohol intake 08/27/2020 12:00:00 AM EST Ex-drinker (finding) comp leted Ex- drinker (finding) [facility] Tobacco use and exposure 08/27/2020 12:00:00 AM EST Never used co mpleted Never used [facility] Smoking 08/27/2020 12:00:00 AM EST Never smoker completed Never s [facility] Alcohol intake 06/22/2020 12:00:00 AM EST Ex-drinker (finding) comp leted Ex- drinker (finding) [facility] Vital Signs ID Date Data Source UNK Name Value Range Interpretation Code Description Data Source(s) Systolic blood pressure 102 mm[Hg] 102 mm[Hg] M EDENT ([facility]) Diastolic blood pressure 72 mm[Hg] 72 mm[Hg] [facility] Heart rate 82 /min 82 /min [facility] ([facility]) Oxygen saturation in Arterial blood by Pulse oximetry 99 % 99 % [facility] ([facility]) Body weight 119.25 [lb_av] 119.25 [lb_av] MEDEN T ([facility]) Body weight 54.092 kg 54.092 kg [facility] ([facility]) Body height 67 [in_i] 67 [in_i] [facility] ([facility]) 5'7" Body height [Percentile] 86 % 86 % [facility] Body mass index (BMI) [Ratio] 18.7 kg/m2 18.7 k g/m2 [facility] ([facility]) Body mass index (BMI) [Percentile] 12 % 1 2 % [facility] Body surface area Derived from formula 1.62 m2 1.62 m2 [facility] ([facility]) Body weight 121.6 [lb_av] 121.6 [lb_av] eCW1 ([facility]) Body weight 55.16 kg 55.16 kg eCW1 ([facility]) Body height 67 [in_i] 67 [in_i] eCW1 ([facility]) Body mass index (BMI) [Ratio] 19.04 kg/m2 19.04 kg/m2 eCW1 ([facility]) Heart rate 98 /min 98 /min eCW1 ([facility]) Respiratory rate 16 /min 16 /min eCW1 ([facility]) Body temperature 98.7 [degF] 98.7 [degF] eCW1 ( [facility]) Systolic blood pressure 126 mm[Hg] 126 mm[Hg] e CW1 ([facility]) Diastolic blood pressure 80 mm[Hg] 80 mm[Hg] eCW1 ([facility]) Body height 67 [in_i] 67 [in_i] eCW1 ([facility]) Body weight 116.6 [lb_av] 116.6 [lb_av] eCW1 ([facility]) Body mass index (BMI) [Ratio] 18.26 kg/m2 18.26 kg/m2 eCW1 ([facility]) Heart rate 77 /min 77 /min eCW1 ([facility]) Respiratory rate 16 /min 16 /min eCW1 ([facility]) Body temperature 98.5 [degF] 98.5 [degF] eCW1 ( [facility]) Systolic blood pressure 138 mm[Hg] 138 mm[Hg] e CW1 ([facility]) Diastolic blood pressure 72 mm[Hg] 72 mm[Hg] eCW1 ([facility]) ID Date Data Source [id number] 06/22/2020 12:56:45 PM [facility] Name Value Range Interpretation Code Description Data Source(s) WEIGHT RECORDED 124.6 lb 124.6 lb [facility] Body height Measured 67 in 67 in [facility] ID Date Data Source [id number] 06/22/2020 09:45:00 AM [facility] Name Value Range Interpretation Code Description Data Source(s) Weight Measurement Method 8 8 [facility] Weight [address] [facility] Temperature Source 7 7 [facility] Temperature 98 98 [place] [facility] Respiratory Effort 1 1 [facility] Respiratory Rate 12 12 [facility] Pulse Rate 96 96 [facility] pital Blood Pressure 138/81 138/81 [facility] Weight Measurement Method 8 8 [facility] Weight 2016 2015 [facility] pital Temperature Source 7 7 [facility] Temperature 98 98 [place] [facility] Respiratory Effort 1 1 [facility] Respiratory Rate 12 12 [facility] Pulse Rate 96 96 [facility] pital Blood Pressure 138/81 138/81 [facility] Weight Measurement Method 8 8 [facility] Weight 2015 2015 [facility] pital Temperature Source 7 7 [facility] Temperature 98 98 [place] [facility] Respiratory Effort 1 1 [facility] Respiratory Rate 12 12 [facility] Pulse Rate 96 96 [facility] pital Blood Pressure 138/81 138/81 [facility] Patient Treatment Plan of Care Planned Activity Planned Date Details Description Data Source (s) Ibuprofen 600 MG Oral Tablet 06/22/2020 12:00:00 AM [facility] Cyclobenzaprine hydrochloride 5 MG Oral Tablet 06/20/2020 12:00:00 AM [facility]
[2021-05-07 17:13] LABS: BASO % 0.4 % (0.0-1.0); EOS # 0.1 10^3/uL (0.0-0.5); EOS % 0.7 % (0.0-3.0); HEMOGLOBIN 14.1 g/dl (12.0-15.5); LYMPH # 2.2 10^3/uL (1.5-5.0); LYMPH % 31.4 % (24.0-44.0); MEAN CORPUSCULAR HEMOGLOBIN 29.3 pg (27.0-33.0); MEAN CORPUSCULAR HGB CONC 33.6 g/dl (32.0-36.5); MEAN CORPUSCULAR VOLUME 87.1 fl (80.0-96.0); MONO # 0.5 10^3/uL (0.0-0.8); MONO % 6.6 % (2.0-8.0); NEUTROPHILS # 4.2 10^3/uL (1.5-8.5); NEUTROPHILS % 60.6 % (36.0-66.0); PLATELET COUNT, AUTOMATED 248 10^3/uL (150-450); RED BLOOD COUNT 4.82 10^6/uL (4.00-5.40); WHITE BLOOD COUNT 6.9 10^3/uL (4.0-10.0)
[2021-05-07 17:33] LABS: BLOOD UREA NITROGEN 11 MG/DL (7-18); CALCIUM LEVEL 9.3 MG/DL (8.5-10.1); CARBON DIOXIDE LEVEL 27 MEQ/L (21-32); CHLORIDE LEVEL 109 MEQ/L (98-107); GLUCOSE, FASTING 97 MG/DL (70-100); POTASSIUM SERUM 3.7 MEQ/L (3.5-5.1); SODIUM LEVEL 142 MEQ/L (136-145)
[2021-05-07 17:39] LABS: HCG, SERUM QUALITATIVE NEGATIVE (NEGATIVE)
--- OUTSIDE RECORDS SUMMARY | 2021-05-07 20:03 | CCD ---
Author Author [facility] Organization [facility] Address Unknown Phone Unavailable Care Team Providers Care Svp Chief Marketing Officer Name Role Phone Nwogu, U Zac DO [...] Mujica MD Unavailable Unavailable ZEGIL, D ALESSANDRA LOKIE ENGINEER Unavailable Unavailable ZEGIL, D ALESSANDRA LOKIE ENGINEER Unavailable Unavailable ZEGIL, D ALESSANDRA LOKIE ENGINEER Unavailable Unavailable Lor F Brown, F LOKIE ENGINEER LOKIE ENGINEER Unavailable Unavailable Lor F Brown, F LOKIE ENGINEER LOKIE ENGINEER Unavailable Unavailable Mitul, R Estela LOKIE ENGINEER Unavailable Unavailable Mitul, R Estela LOKIE ENGINEER Unavailable Unavailable Mitul, R Estela LOKIE ENGINEER Unavailable Unavailable Mitul, R Estela LOKIE ENGINEER Unavailable Unavailable Mitul, R Estela LOKIE ENGINEER Unavailable Unavailable Mitul, R Estela LOKIE ENGINEER Unavailable Unavailable Mitul, R Estela LOKIE ENGINEER Unavailable Unavailable Mitul, R Estela LOKIE ENGINEER Unavailable Unavailable Mitul, R Estela LOKIE ENGINEER Unavailable Unavailable Mitul, R Estela LOKIE ENGINEER Unavailable Unavailable Mitul, R Estela LOKIE ENGINEER Unavailable Unavailable Mitul, R Estela LOKIE ENGINEER Unavailable Unavailable Mitul, R Estela LOKIE ENGINEER Unavailable Unavailable Mitul, R Estela LOKIE ENGINEER Unavailable Unavailable Mitul, R Estela LOKIE ENGINEER Unavailable Unavailable Mitul, R Estela LOKIE ENGINEER Unavailable Unavailable Mitul, R Estela LOKIE ENGINEER Unavailable Unavailable Mitul, R Estela LOKIE ENGINEER Unavailable Unavailable Mitul, R Estela LOKIE ENGINEER Unavailable Unavailable Mitul, R Estela LOKIE ENGINEER Unavailable Unavailable Mitul, R Estela LOKIE ENGINEER Unavailable Unavailable Mitul, R Estela LOKIE ENGINEER Unavailable Unavailable Mitul, R Estela LOKIE ENGINEER Unavailable Unavailable Mitul, R Estela LOKIE ENGINEER Unavailable Unavailable Mitul, R Estela LOKIE ENGINEER Unavailable Unavailable Mitul, R Estela LOKIE ENGINEER Unavailable Unavailable Mitul, R Estela LOKIE ENGINEER Unavailable Unavailable Mitul, R Estela LOKIE ENGINEER Unavailable Unavailable Mitul, R Estela LOKIE ENGINEER Unavailable Unavailable Mitul, R Estela LOKIE ENGINEER Unavailable Unavailable Mitul, R Estela LOKIE ENGINEER Unavailable Unavailable Mitul, R Estela LOKIE ENGINEER Unavailable Unavailable Mitul, R Estela LOKIE ENGINEER Unavailable Unavailable Mitul, R Estela LOKIE ENGINEER Unavailable Unavailable Mitul, R Estela LOKIE ENGINEER Unavailable Unavailable Mitul, R Estela LOKIE ENGINEER Unavailable Unavailable Mitul, R Estela LOKIE ENGINEER Unavailable Unavailable Mitul, R Estela LOKIE ENGINEER Unavailable Unavailable Mitul, R Estela LOKIE ENGINEER Unavailable Unavailable Mitul, R Estela LOKIE ENGINEER Unavailable Unavailable BROWN, TYLER LOR TAXI TRUCK DRIVER Unavailable Unavailable BROWN, TYLER LOR TAXI TRUCK DRIVER Unavailable Unavailable BROWN, TYLER LOR TAXI TRUCK DRIVER Unavailable Unavailable BROWN, TYLER LOR TAXI TRUCK DRIVER Unavailable Unavailable BROWN, TYLER LOR TAXI TRUCK DRIVER Unavailable Unavailable BROWN, TYLER LOR TAXI TRUCK DRIVER Unavailable Unavailable BROWN, TYLER LOR TAXI TRUCK DRIVER Unavailable Unavailable BROWN, TYLER LOR TAXI TRUCK DRIVER Unavailable Unavailable BROWN, TYLER LOR TAXI TRUCK DRIVER Unavailable Unavailable BROWN, TYLER LOR TAXI TRUCK DRIVER Unavailable Unavailable BROWN, TYLER LOR TAXI TRUCK DRIVER Unavailable Unavailable BROWN, TYLER LOR TAXI TRUCK DRIVER Unavailable Unavailable BROWN, TYLER LOR TAXI TRUCK DRIVER Unavailable Unavailable BROWN, TYLER LOR TAXI TRUCK DRIVER Unavailable Unavailable BROWN, TYLER LOR TAXI TRUCK DRIVER Unavailable Unavailable BROWN, TYLER LOR TAXI TRUCK DRIVER Unavailable Unavailable BROWN, TYLER LOR TAXI TRUCK DRIVER Unavailable Unavailable BROWN, TYLER LOR TAXI TRUCK DRIVER Unavailable Unavailable BROWN, TYLER LOR TAXI TRUCK DRIVER Unavailable Unavailable BROWN, TYLER LOR TAXI TRUCK DRIVER Unavailable Unavailable BROWN, TYLER LOR TAXI TRUCK DRIVER Unavailable Unavailable BROWN, TYLER LOR TAXI TRUCK DRIVER Unavailable Unavailable BROWN, TYLER LOR TAXI TRUCK DRIVER Unavailable Unavailable BROWN, TYLER LOR TAXI TRUCK DRIVER Unavailable Unavailable BROWN, TYLER LOR TAXI TRUCK DRIVER Unavailable Unavailable BROWN, TYLER LOR TAXI TRUCK DRIVER Unavailable Unavailable BROWN, TYLER LOR TAXI TRUCK DRIVER Unavailable Unavailable BROWN, TYLER LOR TAXI TRUCK DRIVER Unavailable Unavailable BROWN, TYLER LOR TAXI TRUCK DRIVER Unavailable Unavailable BROWN, TYLER LOR TAXI TRUCK DRIVER Unavailable Unavailable BROWN, TYLER LOR TAXI TRUCK DRIVER Unavailable Unavailable BROWN, TYLER LOR TAXI TRUCK DRIVER Unavailable Unavailable BROWN, TYLER LOR TAXI TRUCK DRIVER Unavailable Unavailable BROWN, TYLER LOR TAXI TRUCK DRIVER Unavailable Unavailable BROWN, TYLER LOR TAXI TRUCK DRIVER Unavailable Unavailable BROWN, TYLER LOR TAXI TRUCK DRIVER Unavailable Unavailable BROWN, TYLER LOR TAXI TRUCK DRIVER Unavailable Unavailable BROWN, TYLER LOR TAXI TRUCK DRIVER Unavailable Unavailable BROWN, TYLER LOR TAXI TRUCK DRIVER Unavailable Unavailable BROWN, TYLER LOR TAXI TRUCK DRIVER Unavailable Unavailable DEMARTINI, M SWAPNA PA Unavailable [...] is protected by Article 27-F of the [place] Public [employer] law. If you continue you may have access to information: Regarding HIV / AIDS; Provided by facilities licensed or operated by the [place] Office of Mental Health; or Provided by the [place] Office for People With Developmental Disabilities. If such information is present, then the following [place] mandated warning applies: This information has been [...] law may result in a fine or fci sentence or both. A general authorization for the release of medical or other information is NOT sufficient authorization for further disc losure. Allergies and Adverse Reactions Type Description Substance Reaction Status Data Source(s ) Propensity to adverse reactions NO KNOWN ALLERGIES NO KNOWN ALLERGIES [facility] Drug allergy Drug allergy No Known Allergies [place] Family History Family Member Name Family Member Gender Family Member Status Date o f Status Description Data Source(s) Unknown Male Problem MEDENT ([facility]) Encounters Encounter Providers Location Date Indications Data Source(s ) Outpatient Attender: Zacyesenia Weaver DOConsultant: Estela Bauman [facility] 05/07/2021 10:52:00 AM EST - 05/07/2021 10:52:00 AM [facility] Outpatient Attender: Zac Meg DO Family Practice 04/19 10:00:00 AM EST MEDENT ([facility]) Emergency Attender: Faustino Mujica MDConsultant: Estela Bauman [facility] 05/04/2021 12:12:00 PM EST - 05/04/2021 02:31:00 PM [facility] Patient discharged. Outpatient 04/01/2021 01:37:40 PM EDT - 021 02:47:53 PM EDT [facility] ([facility]) [place] [address] [address] 03/10/2021 12:00:00 AM EDT eCW1 ([facility]) Outpatient Attender: LOR LUEVANO NP CPSCAORT-CPSGNOBG 02/17 10:33:00 AM EDT - 03/05/2021 10:34:00 AM EDT [facility] Patient discharged. Outpatient [address] [facility] [address] 01/25/2021 12:00:00 AM EDT eCW1 ([facility]) Outpatient Attender: LOR LUEVANO NP CPSCAORT-CPSGNOBG 11/18 01:19:00 PM EDT - 12/09/2020 01:20:00 PM EDT [facility] Patient discharged. [place] [address] [facility] [address] 12/04/2020 12:00:00 AM EDT eCW1 ([facility]) Outpatient Attender: SWAPNA REYNA 11/27/2020 12:00: 00 AM [facility] Outpatient Attender: Estela Bauman FNPConsultant: Vickie WEN 10/28/2020 08:44:00 AM EDT - 10/28/2020 09:45:00 AM EDT [facility] Outpatient [address] [address] 10/26/2020 12:00:00 AM EDT eCW1 ([facility]) Outpatient Attender: LOR LUEVANO NP CPSCAORT-CPSGNOBG 08/18 01:38:00 PM EDT - 09/14/2020 01:39:00 PM EDT [facility] Patient discharged. Outpatient Attender: SWAPNA REYNA [id number] 08/27/2020 12:00:00 AM EST Sprain of other ligament of left ankle, initial encounter [facility] Sprain of other ligament of left ankle, initial encounter Outpatient Attender: SWAPNA REYNA 08/10/2020 12:00: 00 AM [facility] Outpatient Attender: SWAPNA REYNA 08/03/2020 12:00: 00 AM [facility] Outpatient Attender: SWAPNA REYNA [id number] 06/22/2020 12:00:00 AM EST Sprain of other ligament of left ankle, initial encounter [facility] Sprain of other ligament of left ankle, initial encounter Emergency Attender: ALESSANDRA WEN ED-ED 06/2020 08:08:00 PM EST - 06/19/2020 09:09:00 PM EST PAIN IN LEFT ANKLE [facility] PAIN IN LEFT ANKLE Patient discharged. Outpatient Attender: LOR LUEVANO NP CPSCAORT-CPSGNOBG 05/21 10:55:00 AM EST - 06/17/2020 10:56:00 AM EST [facility] Patient discharged. Outpatient CPSCAORT-LABEJN 03/27/2020 02:58:00 PM EDT [facility] Outpatient Attender: BEHZAD Luevano FNPAttender: LOR LUEVANO NP ED-LABPNP 03/27/2020 12:58:00 PM EDT - 03/27/2020 12:59:00 PM EDT Z113 [facility] Z113 Patient discharged. Outpatient Attender: LOR LUEVANO NP CPSCAORT-CPSGNOBG 02/2020 09:19:00 AM EDT - 03/27/2020 09:20:00 AM EDT [facility] Patient discharged. Immunizations Vaccine Date Status Description Data Source(s) COVID-19 VACCINE Cydney 11/26/2020 12:00:00 AM EDT completed NYSIIS Vaccine Series Complete: YESThis Data wa s Submitted to [facility] [employer] [employer]. Medications Medication Brand Name Start Date Product Form Dose Route Admi nistrative Instructions Pharmacy Instructions Status Indications Reaction Description Data Source(s) Levonorgestrel 0.120124 MG/HR Drug Implant [Mirena] Mirena ( 52 MG) 05/07/2021 12:00:00 AM EST active M EDENT ([facility]) Ibuprofen 600 MG Oral Tablet Ibuprofen 600 MG Oral Tab let (MOTRIN) Ibuprofen 600 MG Oral Tablet (MOTRIN) 06/22/2020 12:00:00 AM EST 600 mg Oral active Take 1 tablet by mouth every 8 (eight) h ours as needed for PainTake with food. [facility] Cyclobenzaprine hydrochloride 5 MG Oral Tablet Cyclobenzaprine HCl 5 MG Oral Tablet (FLEXERIL) Cyclobenzaprine HCl 5 MG Oral Tablet (FLEXERIL) 2020 12:00:00 AM EST active TAKE ONE TABLET BY MOUTH THREE TIMES A DAY NEEDED [facility] Cyclobenzaprine hydrochloride 5 MG Oral Tablet CYCLOBENZAPRI NE HCL 06/20/2020 12:00:00 AM EST tablet 15 TAKE ONE TABLET BY MOUTH THREE TIMES A DAY NEEDED TAKE ONE TABLET BY MOUTH THREE TIMES A DAY NEEDED SOLD: 06/22/2020 [facility] Insurance Providers Payer name Policy type / Coverage type Policy ID Covered constitution party ID Covered constitution party's relationship to dawson Policy Dawson Plan Information [employer] (HMO) [id number] Family Dependent [id number] [employer] (HMO) [id number] 2.16.840.1.929114.3.227.99.4877.32148.31688 Family Dependent [id number] [employer] (HMO) [id number] 24 2.16.840.1.174269.3.227.99.4877.41006.67105 Family Dependent [id number] [employer] (HMO) [id number] 2.16.840.1.556300.3.227.99.4877.35431.35874 Family Dependent [id number] [employer] (HMO) [id number] 2.16.840.1.462335.3.227.99.4877.83623.19309 Family Dependent [id number] [employer] (HMO) [id number] 2.16.840.1.815656.3.227.99.4877.04859.07870 Family Dependent [id number] [employer] (HMO) [id number] 24 2.16.840.1.675751.3.227.99.4877.92910.05102 Family Dependent [id number] [employer] (HMO) [id number] 24 2.16.840.1.370086.3.227.99.4877.02460.54041 Family Dependent [id number] [employer] (HMO) [id number] Family Dependent [employer] (HMO) [id number] 24 2.16.840.1.867951.3.227.99.4877.62133.84835 Family Dependent [id number] [employer] (HMO) [id number] 24 2.16.840.1.251512.3.227.99.4877.28583.56815 Family Dependent [id number] [employer] (HMO) [id number] 24 2.16.840.1.451115.3.227.99.4877.01635.67227 Family Dependent [id number] [employer] (HMO) [id number] 24 2.16.840.1.541041.3.227.99.4877.43701.27635 Family Dependent [id number] [employer] (HMO) [id number] 24 2.16.840.1.554965.3.227.99.4877.59385.01821 Family Dependent [id number] [employer] (HMO) [id number] 24 2.16.840.1.374060.3.227.99.4877.47272.30505 Family Dependent [id number] [employer] (HMO) [id number] 24 2.16.840.1.927693.3.227.99.4877.36661.31066 Family Dependent [id number] [employer] (HMO) [id number] 24 2.16.840.1.194926.3.227.99.4877.62259.33877 Family Dependent [id number] [facility] [employer] Health Maintenance Organization (HMO) [id number] 2.16.840.1.603736.3.227.99.4877.03345.03851 Family Dependent [id number] [facility] [employer] Health Maintenance Organization (HMO) [id number] 2.16.840.1.756418.3.227.99.4877.65894.68357 Family Dependent [id number] [facility] [employer] Health Maintenance Organization (HMO) [id number] 2.16.840.1.719727.3.227.99.4877.56292.62030 Family Dependent [id number] [facility] [employer] Health Maintenance Organization (HMO) [id number] 2.16.840.1.248811.3.227.99.4877.90517.35782 Family Dependent [id number] [facility] [employer] Health Maintenance Organization (HMO) [id number] 2.16.840.1.046685.3.227.99.4877.29704.08059 Family Dependent [id number] [facility] [employer] Health Maintenance Organization (HMO) [id number] 2.16.840.1.398412.3.227.99.4877.68835.71814 Family Dependent [id number] [facility] [employer] Health Maintenance Organization (HMO) [id number] 2.16.840.1.458858.3.227.99.4877.63574.06083 Family Dependent [id number] [facility] [employer] Health Maintenance Organization (HMO) [id number] 81 2.16.840.1.229052.3.227.99.4877.67903.31314 Family Dependent [id number] [facility] [employer] Health Maintenance Organization (HMO) [id number] 2.16.840.1.046063.3.227.99.4877.24633.44025 Family Dependent [id number] [facility] [employer] Health Maintenance Organization (HMO) [id number] 2.16.840.1.965012.3.227.99.4877.44995.68535 Family Dependent [id number] [facility] [employer] Health Maintenance Organization (HMO) [id number] Family Dependent [facility] [employer] Health Maintenance Organization (HMO) [id number] 2.16.840.1.637997.3.227.99.4877.26958.44254 Family Dependent [id number] [facility] [employer] Health Maintenance Organization (HMO) [id number] 2.16.840.1.351362.3.227.99.4877.43949.43877 Family Dependent [id number] [facility] [employer] Health Maintenance Organization (HMO) [id number] 2.16.840.1.781240.3.227.99.4877.14037.52825 Family Dependent [id number] [facility] [employer] Health Maintenance Organization (HMO) [id number] 2.16.840.1.235177.3.227.99.4877.70512.65145 Family Dependent [id number] [facility] [employer] Health Maintenance Organization (HMO) [id number] 2.16.840.1.313565.3.227.99.4877.89628.16883 Family Dependent [id number] [facility] [employer] Health Maintenance Organization (HMO) [id number] 2.16.840.1.539399.3.227.99.4877.45774.19890 Family Dependent [id number] [employer] [id number] 08.04.830.1.823588.3.227.99.4 [id number] Family Dependent [id number] [employer] [id number] 08.04.830.1.147875.3.227.99.4 [id number] Family Dependent [id number] [employer] [id number] 08.04.830.1.950269.3.227.99.4 [id number] Family Dependent [id number] [employer] [id number] 08.04.830.1.102347.3.227.99.4 [id number] Family Dependent [id number] [employer] [id number] 08.04.830.1.293273.3.227.99.4 [id number] Family Dependent [id number] [employer] [id number] 08.04.830.1.209483.3.227.99.4 [id number] Family Dependent [id number] [employer] [id number] 08.04.830.1.854017.3.227.99.4 [id number] Family Dependent [id number] [employer] [id number] 08.04.830.1.605743.3.227.99.4 [id number] Family Dependent [id number] [employer] [id number] 08.04.830.1.360073.3.227.99.4 [id number] Family Dependent [id number] [employer] [id number] 08.04.830.1.665947.3.227.99.4 [id number] Family Dependent [id number] [employer] [id number] 08.04.830.1.546927.3.227.99.4 [id number] Family Dependent [id number] [employer] [id number] 2.840.1.967760.3.227.99.4 [id number] Family Dependent [id number] [employer] [id number] 2.840.1.066755.3.227.99.4 [id number] Family Dependent [id number] [employer] [id number] 2.840.1.821037.3.227.99.4 [id number] Family Dependent [id number] [employer] [id number] 2.840.1.563165.3.227.99.4 [id number] Family Dependent [id number] [employer] [id number] 2.0.1.042972.3.227.99.4 [id number] Family Dependent [id number] [employer] [id number] Family Dependent LU[place] I [id number] Self [id number] [place] I [id number] Self [id number] [facility] [id number] S [id number] [place] I [id number] Self [id number] [employer] [id number] 2.0.1.816792.3.227 .99.4877.91097.79307 Family Dependent [id number] [employer] [id number] 2.0.1.500764.3.227 .99.4877.55030.49435 Family Dependent [id number] [employer] Health Maintenance Organization (O) [id number] 2.840.1.841934.3.227.99.4877.12040.88157 Self [id number] [employer] Health Maintenance Organization (O) [id number] 2.840.1.372303.3.227.99.4877.62827.60675 Self [id number] [employer] Health Maintenance Organization (O) [id number] 2.16840.1.228906.3.227.99.4877.93944.30791 Self [id number] [employer] Maintenance Organization (O) [id number] 2.16.840.1.618720.3.227.99.4877.08243.05615 Self [id number] [employer] Maintenance Organization (HMO) [id number] 2.16.840.1.014066.3.227.99.4877.89145.38856 Self [id number] [employer] Maintenance Organization (HMO) [id number] 2.16.840.1.332273.3.227.99.4877.01233.92795 Self [id number] [facility] [place] [id number] S [id number] [employer] [id number] Self [id number] [facility] Community Plan Health Maintenance Organization (HMO) [id number] 2.16.840.1.058087.3.227.99.4877.40302.08960 Family Dependent Ranjan Burciaga [id number] [employer] [id number] [facility] [place] [id number] S [id number] [employer] [id number] 2.16.840.1.586463.3.227.99.4 [id number] Family Dependent Ranjan Burciaga [id number] [facility] BLUE [id number] SP [id number] [facility] [id number] S [id number] [facility] [id number] SP [id number] [place] [id number] SP [id number] 200 BLUE [employer] JETER PLAN [id number] SP [id number] ANSI-Commercial [id number] ANSI-Commercial [id number] [facility] [place] -OP [id number] 18 [id number] ANSI-Commercial [id number] [facility] [id number] 18 74 [id number] [place] Medicaid/CHP/FHP Medigap Part B [id number] 2.840.1.049008.3.227.99.991.083402.0 Self [id number] [place] [employer]/CHP/FHP Medigap Part B [id number] 2.0.1.492883.3.227.99.991.050557.0 Self [id number] ANSI-Commercial [id number] ANSI-Commercial [id number] [employer] (HMO) [id number] 2.840.1.111595.3.227.99.4877.24504.60060 Family Dependent Ranjan Xiao Marjanagathachristel [id number] [employer] (pr) Commercial ~~08/22/18 2.840.1.700658.3.2 [id number] Self ~~08/22/18 [place] Medicaid/CHP/FHP Medigap Part B [id number] Self [id number] Problems, Conditions, and Diagnoses Code Display Name Description Problem Type Effective Dates Data Source(s) N3001 Acute cystitis with hematuria Acute cystitis with lavinia turia Diagnosis 05/04/2021 12:12:00 PM [facility] N938 Other specified abnormal uterine and vag inal bleeding Other specified abnormal uterine and vaginal bleeding Diagnosis 05/04/2021 12:12:00 PM [facility] N939 Abnormal uterine and vaginal bleeding, u nspecified Abnormal uterine and vaginal bleeding, unspecified Diagnosis 05/04/2021 12:12:00 PM [facility] Z30.42 Encounter for surveillance of injectable contraceptive ENCOUNTER FOR SURVEILLANCE OF INJECTABLE CONTRACEPTIVE Diagnosis 03/05/2021 10:33:00 AM [facility] Z862 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 and certain disorders involving the immune mechanism 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 and certain disorders involving the immune mechanism Diagnosis 10/28/2020 08:44:00 AM [facility] M76.72 Peroneal tendinitis, left leg Peroneal tendinitis, lef t leg Diagnosis 08/27/2020 02:44:33 PM [facility] S93.492A Sprain of other ligament of left ankle, initial encounter Sprain of other ligament of left ankle, initial encounter Diagnosis 2020 02:44:33 PM [facility] Z86.2 [id number] History of anemia Problem 10/26/2020 12:00:0 0 AM EDT eCW1 ([facility]) Surgeries/Procedures Procedure Description Date Indications Data Source(s) OFFICE OUTPATIENT NEW 30 MINUTES 05/07/2021 12:00:00 A M ARTEM ZELAYA ([facility]) THERAPEUTIC PROPHYLACTIC/DX INJECTION SUBQ/IM THER/PROPH/NEPTALI G INJ SC/IM 03/05/2021 12:00:00 AM [facility] Injection, medroxyprogesterone acetate, 1 mg 12:00:00 AM [facility] Results ID Date Data Source [id number] 05/04/2021 12:12:00 PM [facility] 1 OrderSheet [facility] Emergency Department [address] [place] [address] Phone #: [phone] 05/04/2021 12:11 Patient: DELIO BURCIAGA Sex: F [...] rce(s) Supporting Document(s) ID Date Data Source [id number] 05/04/2021 12:12:00 PM EST [facility] 1 Medication Reconciliation Report [facility] Emergency Department [address] [place] [address] Phone #: [phone] 05/04/2021 12:11 Patient: [...] 30 tablet. Refills: 0. Substitution permitted.Pharmacy - [id number] [id number] ; [place] [address]. .cephalexin 500 mg tablet Take 1 tablet three times a day for 7 days -- Dispense 21 tablet. Refills: 0.Substitution permitted.[facility] [phone] ; [place] [address]. . -- AXEL Barnett Name Value Range Interpretation Code Description Data Audrey e(s) Supporting Document(s) ID Date Data Source [id number] 05/04/2021 12:12:00 PM [facility] 1 Medication Administration Record [facility] Emergency Department [address] [place] [address] Phone #: ext- [phone] 12:11 Patient: DELIO BURCIAGA Sex: F : 2000 Age: 20yWeight: 56.6 kgHeight/Length: 67 inBMI: 19.6ALLERGIES: No Known Drug AllergyDate/Time Medication Administered Medication Ordered Name Value Range Interpretation Code Description Data Audrey rce(s) Supporting Document(s) ID Date Data Source [id number] 05/04/2021 12:12:00 PM EST [facility] 1 General Instructions [facility] Emergency Department [address] [place] [address] Phone #: ext- [phone] 05/04/2021 12:11 Patient: [...] 30 tablet. Refills: 0. Substitution permitted.Pharmacy - [facility] [phone] ; [place] [address]. .cephalexin 500 mg tablet Take 1 tablet three times a day for 7 days -- Dispense 21 tablet. Refills: 0.Substitution permitted.[facility] [phone] ; [place] [address]. .Follow-up:Follow up with your doctor if not better. Reason for referral: evaluation and treatment. Summary of careprovided to patient.Understanding of the discharge instructions verbalized by patient. ADDITIONAL INFORMATIONDysfunctional Uterine Bleeding 2 General Instructions [facility] Emergency Department [address] [place] [address] Phone #: ext- [phone] 05/04/2021 12:11 Patient: DELIO BURCIAGA Sex: F : 2000 Age: 20yDysfunctional uterine bleeding, also called abnormal uterine bleeding, is a condition in which bleedingis abnormal and occurs at unexpected times of the month. This happens because of changes in thehormones that help control a woman's menstrual cycle each month.The bleeding may be heavier or laborer drying department than normal. If you have heavy bleeding [...] easily. Avoid heavy exertion. 3 General Instructions [facility] Emergency Department [address] [place] [address] Phone #: ext- [phone] 05/04/2021 12:11 Patient: DELOI BURCIAGA Sex: F : 2000 Age: 20y [...] or shortness of breath Dizziness or fainting [employer]. [address] [place] [address]. All rights reserved. This information is not intended as asubstitute for professional medical care. Always follow your healthcare professional's instructions. 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 SEPSIS SCREEN NEGATIVE. [...] Uses depoinjections. 2 Clinical Report - Nurses [facility] Emergency Department [address] [place] [address] Phone #: ext- [phone] 05/04/2021 12:11 Patient: [...] to collect 3 Clinical Report - Nurses [facility] Emergency Department [address] [place] [address] Phone #: ext- [phone] 05/04/2021 12:11 Patient: DELIO BURCIAGA Sex: F : 2000 Age: 20y clean catch urine and patient verbalized understanding. Clean catch urine collected; sample sent to lab for urinalysis. Specimen labeled in the presence of the patient. --13:53 05/04/21 Alma Lopez R.N. 14:00 05/04/21. BP: 124/79. MAP: 94. HR: 68. RR: 15. O2 saturation: 100%. --14:18 05/04/21 [facility] 14:27 05/04/21. BP: 125/79. HR: 66. RR: 16. O2 saturation: 100%. Temp: 99.1 F. Pain level now 10. --14:27 05/04/21 [facility] Condition at departure: unchanged. No learning barriers present. Discharge instructions provided and reviewed with the patient. Reviewed medication(s) side effects, precautions, dosing and course information. Prescription(s) given to the patient and sent electronically to pharmacy. Patient verbalized understanding. Written instructions provided in Estonian. The patient was discharged home and unaccompanied at time of discharge. She left ambulatory and via private vehicle. Patient driving. --14:30 05/04/21 Alma Lopez R.N. Departure time: 14:31 05/04/2021. --14:31 05/04/21 Alma Lopez R.N.Locked/Released at 05/04/2021 14:31 by Alma Lopez R.N. Name Value Range Interpretation Code Description Data Audrey rce(s) Supporting Document(s) ID Date Data Source [id number] 05/04/2021 12:12:00 PM [facility] 1 Clinical Report - Physicians/Mid Levels [facility] Emergency Department [address] [place] [address] Phone #: ext- [phone] 05/04/2021 12:11 Patient: [...] F. 2 Clinical Report - Physicians/Mid Levels [facility] Emergency Department [address] [place] [address] Phone #: ext- [phone] 05/04/2021 12:11 Patient: [...] TO UA CULTURE: (NITESH: 05/04/2021 13:50) ( [facility] 05/04/2021 14:06) Final results Test Result Flag [...] Beta-HCG, Qual Urine: (NITESH: 05/04/2021 13:50) ( [facility] 05/04/2021 14:07) Final results Test Result Flag Units (Reference) HCG URINE QUAL NEGATIVE (NORMAL: NEGAT HCG URINE QL REENTER NEGATIVE (NORMAL: NEGAT { KIT LOT # [id number] ){ KIT EXP DATE 01.31.23 ){ PROCEDURAL CONTROL VALID ).PROGRESS AND PROCEDURES 3 Clinical Report - Physicians/Mid Levels [facility] Emergency Department [address] [place] [address] Phone #: ext- [phone] 05/04/2021 12:11 Patient: [...] tablet. Refills: 0. Substitution permitted. Pharmacy - [facility] [address] ; [place] [address]. Phone: . cephalexin 500 mg tablet Take 1 tablet three times a day for 7 days -- Dispense 21 tablet. Refills: 0. Substitution permitted. [facility] [address] ; [place] [address]. . Follow-up: Follow up with your doctor if not better. Reason for referral: evaluation and treatment. Summary of care provided to patient. Understanding of the discharge instructions verbalized by patient.(Electronically signed by AXEL Barnett 05/04/2021 21:57) 4Clinical Report - Physicians/Mid Levels [facility] Emergency Department [address] [place] [address] Phone #: [phone]- [phone] 05/04/2021 12:11 Patient: DELIO BURCIAGA Sex: F : 2000 Age: 20y Name Value Range Interpretation Code Description Data Audrey rce(s) Supporting Document(s) ID Date Data Source [id number] 05/04/2021 02:07:00 PM EST [facility] Name Value Range Interpretation Code Description Data Audrey rce(s) Supporting Document(s) HCG URINE QUAL NEGATIVE NORMAL: NEGATIVE [facility] HCG URINE QL REENTER NEGATIVE NORMAL: NEGATIVE [facility] { KIT LOT # [id number] ){ KIT EXP DATE 07.19.22 ){ PROCEDURAL CONTROL VALID ) ID Date Data Source [id number] 05/04/2021 02:05:00 PM [facility] Name Value Range Interpretation Code Description Data Audrey rce(s) Supporting Document(s) UA REFLEX TO UA CULTURE [facility] URINALYSIS SOURCE R [facility] COLOR yellow NORMAL: Yellow [facility] CLARITY turbid NORMAL: Clear [facility] Specific gravity of Urine by Test strip 1.020 1.001 - 1.030 [facility] pH 8 5 - 9 [facility] al Glucose [Mass/volume] in Urine by Test strip NORM NORMAL: Negat jeffery [facility] Bilirubin.total [Presence] in Urine by Test strip NEG NORMAL: Negative [facility] Ketones [Presence] in Urine by Test strip NEG NORMAL: Negative [facility] Protein [Mass/volume] in Urine by Test strip NEG NORMAL: Negat jeffery [facility] Nitrite [Presence] in Urine by Test strip NEG NORMAL: Negative [facility] BLOOD 10 NORMAL: Negative [facility] Leukocyte esterase [Presence] in Urine by Test strip 100 [place] L: Negative [facility] Urobilinogen [Mass/volume] in Urine by Test strip 4 less john n 1.0 mg/dL [facility] MICROSCOPIC See Below [facility] ital WBC 3 - [address] NORMAL: N[address] [facility] Erythrocytes [#/volume] in Urine by Test strip 1 - 3 NORMAL: NON E SEEN [facility] EPITHELIAL FEW NORMAL: NONE SEEN [facility] Bacteria [Presence] in Urine sediment by Light microscopy Tr santos NORMAL: NONE SEEN [facility] Amorphous sediment [Presence] in Urine sediment by Light jerry roscopy 3+ NORMAL: NONE SEEN [facility] ID Date Data Source [id number] 04/01/2021 02:45:00 PM EDT [facility] Name Value Range Interpretation Code Description Data Audrey rce(s) Supporting Document(s) SARS-CoV-2 RNA Resp Ql ELIDA+probe NOT DETECTED [facility] This lab was ordered by KAMERON nobles and reported by KAMERON Severino. ID Date Data Source [id number] 10/28/2020 09:47:00 AM EDT [facility] Name Value Range Interpretation Code Description Data Audrey rce(s) Supporting Document(s) Ferritin [Mass/volume] in Serum or Plasma 23.3 ng/mL 3.0 - 105 [facility] ID Date Data Source [id number] 10/28/2020 09:07:00 AM EDT [facility] Name Value Range Interpretation Code Description Data Audrey rce(s) Supporting Document(s) CBC W/AUTOMATED DIFF [facility] COMPLETE BLOOD COUNT Leukocytes [#/volume] in Blood by Automated count 4.5 10^3/uL 4.2 - 1 1.0 [facility] Erythrocytes [#/volume] in Blood by Automated count 4.67 10^6/uL 4. 20 - 5.40 [facility] Hemoglobin [Mass/volume] in Blood 13.2 g/dL 12.0 - 16.0 [facility] Hematocrit [Volume Fraction] of Blood by Automated count 40.4 % 3 7.0 - 47.0 [facility] Erythrocyte mean corpuscular volume [Entitic volume] by Auto mated count 86.5 fL 81.0 - 101 [facility] Erythrocyte mean corpuscular hemoglobin [Entitic mass] by Automated count 28.3 pg 27.0 - 34.0 [facility] Erythrocyte mean corpuscular hemoglobin concentration [Mass/volume] by Automated count 32.7 g/dL 31.0 - 36.0 [facility] Erythrocyte distribution width [Ratio] by Automated count 13.1 % 11.5 - 14.5 [facility] Platelets [#/volume] in Blood by Automated count 232 10^3/uL 150 - 45 0 [facility] Platelet mean volume [Entitic volume] in Blood by Automated count 11.0 fL 7.4 - 10.4 H [facility] Neutrophils/100 leukocytes in Blood by Automated count 49.4 % 37. 0 - 80.0 [facility] Lymphocytes/100 leukocytes in Blood by Manual count 40.9 % 25.0 - 40.0 H [facility] Monocytes/100 leukocytes in Blood by Automated count 7.7 % 3.0 - 8.0 [facility] Eosinophils/100 leukocytes in Blood by Automated count 1.1 % 0.0 - 7.0 [facility] Basophils/100 leukocytes in Blood by Automated count 0.7 % 0.0 - 2.5 [facility] %IG 0.2 % 0.0 - 0.0 [facility] %NRBC 0.0 % 0.0 - 0.0 [facility] al Neutrophils [#/volume] in Blood by Automated count 2.23 10^3/uL 2.00 - 6.90 [facility] Lymphocytes [#/volume] in Blood by Automated count 1.85 10^3/uL 0.60 - 3.40 [facility] Monocytes [#/volume] in Blood by Automated count 0.35 10^3/uL 0.00 - 0.90 [facility] Eosinophils [#/volume] in Blood by Automated count 0.05 10^3/uL 0.00 - 0.70 [facility] Basophils [#/volume] in Blood by Automated count 0.03 10^3/uL 0.00 - 0.20 [facility] #IG 0.01 10^3/uL 0.00 - 0.10 [facility] #NRBC 0.00 10^3/uL 0.00 - 0.00 [facility] MANUAL DIFF NOT INDICATED [facility] RBC MORPH NOT INDICATED [facility] ID Date Data Source [id number] 08/27/2020 03:18:12 PM [facility] Name Value Range Interpretation Code Description Data Audrey rce(s) Supporting Document(s) Progress Note [facility] [id number] lbm [file] [id number] ID Date Data Source [id number] 06/22/2020 12:56:45 PM [facility] Name Value Range Interpretation Code Description Data Audrey rce(s) Supporting Document(s) Progress Note [facility] [id number] lbm [file] [id number]/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 [file] [id number]= ID Date Data Source [id number] 06/22/2020 12:56:40 PM EST [facility] Name Value Range Interpretation Code Description Data Audrey rce(s) Supporting Document(s) Progress Note [facility] [id number] lbm [file] [id number] ID Date Data Source [id number] 06/20/2020 12:55:00 PM [facility] Imaging Services Department Imaging Report [address] [address] %(RAD)RES..mtdd.print.filter("line") Name: DELIO BURCIAGA : 2000 Age/Sex: 19F Ordering Provider: BEHZAD [facility] Med Rec #: [id number] Reg Status: [facility] Room #: Date of Service: 06/19/20 Report Number: [id number] cc:PCP None Send Report To: [id number] XRP/XR Ankle Lt Min. 3 Views Reason [...] Date/Time: 06/20/20 0936 Transcribed Date/Time: 06/20/20 1255 Travel Ticketing Reviewer: ASA Name Value Range Interpretation Code Description Data Audrey rce(s) Supporting Document(s) ID Date Data Source [id number] 03/31/2020 01:40:00 PM EDT [facility] Name Value Range Interpretation Code Description Data Audrey rce(s) Supporting Document(s) Chlamydia,Urine result Negative Normal (applies to non-n umeric results) [facility] Test Performed By: [facility] [address] [place] [address] Director: Asya Jacobo MD . GC Urine result Negative Normal (applies to non-numeric results) [facility] Test Performed By: [facility] [address] [place] [address] Director: Asya Jacobo MD . Methodology: Second generation nucleic acid amplification. ID Date Data Source [id number] 03/31/2020 12:52:00 PM EDT [facility] Name Value Range Interpretation Code Description Data Audrey rce(s) Supporting Document(s) Chlamydia,Urine Negative Normal (applies to non-numeric results) [facility] Test Performed By: [facility] [address] [place] [address] Director: Asya Jacobo MD . GC Urine Negative Normal (applies to non-numeric resul ts) [facility] Test Performed By: [facility] [address] [place] [address] Director: Asya Jacobo MD . Methodology: Second generation nucleic acid amplification. Procedure Social History Code Duration Value Status Description Data Source(s ) Smoking 03/09/2021 12:00:00 AM EDT Never Smoker completed Never S moker eCW1 ([facility]) Smoking 01/25/2021 12:00:00 AM EDT Never Smoker completed Never S moker eCW1 ([facility]) Smoking 10/26/2020 12:00:00 AM EDT Never Smoker completed Never S moker eCW1 ([facility]) Smoking 10/26/2020 12:00:00 AM EDT Never Smoker completed Never S [facility] eCW[facility] ([facility]) Alcohol intake 08/27/2020 12:00:00 AM EST Ex-drinker (finding) comp leted Ex- drinker (finding) [facility] Tobacco use and exposure 08/27/2020 12:00:00 AM EST Never used co mpleted Never used [facility] Smoking 08/27/2020 12:00:00 AM EST Never smoker completed Never s [facility] Alcohol intake 06/22/2020 12:00:00 AM EST Ex-drinker (finding) comp leted Ex- drinker (finding) [facility] Vital Signs ID Date Data Source UNK Name Value Range Interpretation Code Description Data Source(s) Systolic blood pressure 102 mm[Hg] 102 mm[Hg] M EDENT ([facility]) Body weight 119.25 [lb_av] 119.25 [lb_av] MEDEN T ([facility]) Body weight 54.092 kg 54.092 kg MEDENT ([facility]) Body height 67 [in_i] 67 [in_i] [facility] ([facility]) 5'7" Body height [Percentile] 86 % 86 % [facility] ([facility]) Body mass index (BMI) [Ratio] 18.7 kg/m2 18.7 k g/m2 [facility] Diastolic blood pressure 72 mm[Hg] 72 mm[Hg] [facility] ([facility]) Body mass index (BMI) [Percentile] 12 % 1 2 % [facility] ([facility]) Body surface area Derived from formula 1.[address] [facility] ([facility]) Heart rate 82 /min 82 /min [facility] ([facility]) Oxygen saturation in Arterial blood by Pulse oximetry 99 % 99 % [facility] ([facility]) Body weight 121.6 [lb_av] 121.6 [lb_av] eCW1 ([facility]) Body weight 55.16 kg 55.16 kg eCW1 ([facility]) Body height 67 [in_i] 67 [in_i] eCW1 ([facility]) Body mass index (BMI) [Ratio] 19.04 kg/m2 19.04 kg/m2 eCW1 ([facility]) Heart rate 98 /min 98 /min eCW1 ([facility]) Respiratory rate 16 /min 16 /min eCW1 ([facility]) Body temperature 98.7 [degF] 98.7 [degF] eCW1 ( [facility]) Systolic blood pressure 126 mm[Hg] 126 mm[Hg] e CW1 ([facility]) Diastolic blood pressure 80 mm[Hg] 80 mm[Hg] eCW1 ([facility]) Body mass index (BMI) [Ratio] 18.26 kg/m2 18.26 kg/m2 eCW1 ([facility]) Body weight 116.6 [lb_av] 116.6 [lb_av] eCW1 ([facility]) Body height 67 [in_i] 67 [in_i] eCW1 ([facility]) Heart rate 77 /min 77 /min eCW1 ([facility]) Respiratory rate 16 /min 16 /min eCW1 ([facility]) Body temperature 98.5 [degF] 98.5 [degF] eCW1 ( [facility]) Systolic blood pressure 138 mm[Hg] 138 mm[Hg] e CW1 ([facility]) Diastolic blood pressure 72 mm[Hg] 72 mm[Hg] eCW1 ([facility]) ID Date Data Source [id number] 06/22/2020 12:56:45 PM [facility] Name Value Range Interpretation Code Description Data Source(s) WEIGHT RECORDED 124.6 lb 124.6 lb [facility] Body height Measured 67 in 67 in [facility] ID Date Data Source [id number] 06/22/2020 09:45:00 AM [facility] Name Value Range Interpretation Code Description Data Source(s) Weight Measurement Method 8 8 [facility] Weight 2015 2015 [facility] Temperature Source 7 7 [facility] Temperature 98 98 [facility] Respiratory Effort 1 1 [facility] Respiratory Rate 12 12 [facility] Pulse Rate 96 96 [facility] Blood Pressure 138/81 138/81 [facility] Weight Measurement Method 8 8 [facility] Weight 2016 2015 [facility] pital Temperature Source 7 7 [facility] Temperature 98 98 [facility] Respiratory Effort 1 1 [facility] Respiratory Rate 12 12 [facility] Pulse Rate 96 96 [facility] pital Blood Pressure 138/81 138/81 [facility] Weight Measurement Method 8 8 [facility] Weight 2015 2015 [facility] pital Temperature Source 7 7 [facility] Temperature 98 98 [facility] Respiratory Effort 1 1 [facility] Respiratory Rate 12 12 [facility] Pulse Rate 96 96 [facility] pital Blood Pressure 138/81 138/81 [facility] Patient Treatment Plan of Care Planned Activity Planned Date Details Description Data Source (s) Ibuprofen 600 MG Oral Tablet 06/22/2020 12:00:00 AM [facility] Cyclobenzaprine hydrochloride 5 MG Oral Tablet 06/20/2020 12:00:00 AM [facility]
== END 2021-05-07 19:30 | disposition left against medical advice (07) ==
LOC: M ED 16:37
DX: Z53.21 Procedure and treatment not carried out due to patient leaving prior to being seen by health care provider (principal)

== ENCOUNTER 2024-01-09 15:54 | Emergency (ER) | payer OTHER ==
[~2024-01-09] VITALS: Ht 170.2 cm; Wt 55.4 kg
[2024-01-09] MEDS ORDERED: ONDA-282 (16:01)
[2024-01-09 16:36] LABS: BASO % 0.2 % (0.0-1.0); EOS # 0.1 10^3/uL (0.0-0.5); EOS % 0.5 % (0.0-3.0); HEMATOCRIT 33.4 % (36.0-47.0); HEMOGLOBIN 11.3 g/dl (12.0-15.5); LYMPH # 1.9 10^3/uL (1.5-5.0); MEAN CORPUSCULAR HEMOGLOBIN 29.4 pg (27.0-33.0); MEAN CORPUSCULAR HGB CONC 33.8 g/dl (32.0-36.5); MONO # 0.7 10^3/uL (0.0-0.8); NEUTROPHILS # 7.3 10^3/uL (1.5-8.5); NEUTROPHILS % 73.1 % (36.0-66.0); PLATELET COUNT, AUTOMATED 193 10^3/uL (150-450); RED BLOOD COUNT 3.84 10^6/uL (4.00-5.40)
[2024-01-09] MEDS: METOCLOPRAMIDE INJ 10MG/2ML VIAL IV ONE (17:01)
[2024-01-09] MEDS: NS 1,000 ML IV ONE (17:01)
[2024-01-09 17:04] LABS: ALBUMIN 3.5 G/DL (3.2-5.2); ALKALINE PHOSPHATASE 41 U/L (46-116); ALT/SGPT 11 U/L (7.0-40); AST/SGOT < 8 U/L (<34); BILIRUBIN,DIRECT < 0.1 MG/DL (<0.4); BILIRUBIN,TOTAL 0.3 MG/DL (0.3-1.2); MAGNESIUM LEVEL 1.7 MG/DL (1.8-2.4); TOTAL PROTEIN 6.1 G/DL (5.7-8.2)
[2024-01-09 17:23] LABS: THYROID STIMULATING HORMONE 0.661 uIU/ML (0.55-4.78)
[2024-01-09] MEDS: diphenhydrAMINE 50MG/ML VIAL IV ONE (18:24)
[2024-01-09] MEDS ORDERED: CEPH500C PO (19:46)
[2024-01-09 19:58] VITALS: BP 108/59; TEMP 97.5; O2SAT 100
[2024-01-09] MEDS: CEPHALEXIN 500 MG CAP PO ONE (19:58)
== END 2024-01-09 19:59 | disposition home or self-care (01) ==
LOC: M ED 15:54
DX: O23.42 Unspecified infection of urinary tract in pregnancy, second trimester (principal); N30.00 Acute cystitis without hematuria; R51.9 Headache, unspecified; Z3A.17 17 weeks gestation of pregnancy
CPT/HCPCS: 80047; 80076; 81001; 83735; 84443; 85025; 86850; 86900; 86901; 87086; 93005; 96361; 96374; 96375; 99284; J1200; J2765

== ENCOUNTER 2024-03-22 00:52 | Outpatient (CLI) | payer OTHER ==
[~2024-03-22] VITALS: Ht 170.2 cm; Wt 60.5 kg
[~2024-03-22 00:52] MED LIST changes: +CEPH500C PO; +ONDA-282
[2024-03-22 01:09] VITALS: BP 117/71
[2024-03-22] MEDS ORDERED: ACETAMINOPHEN 500 MG TAB PO PRN (02:10)
[2024-03-22 02:29] LABS: APPEARANCE, URINE CLEAR (CLEAR); BACTERIA, URINE AUTO NEGATIVE (NEGATIVE); BILIRUBIN, URINE AUTO NEGATIVE (NEGATIVE); BLOOD, URINE BLOOD NEGATIVE (NEGATIVE); COLOR, URINE STRAW (YELLOW); GLUCOSE, URINE (UA) AUTO NEGATIVE (NEGATIVE); KETONE, URINE AUTO NEGATIVE (NEGATIVE); LEUKOCYTE ESTERASE, URINE AUTO 3+ (NEGATIVE); NITRITE, URINE AUTO NEGATIVE (NEGATIVE); PROTEIN, URINE AUTO NEGATIVE (NEGATIVE); RBC, URINE AUTO 0 /HPF (0-3); SPECIFIC GRAVITY URINE AUTO 1.005 (1.002-1.035); SQUAMOUS EPITHELIAL CELL UR AU 3 /HPF (0-6); UROBILINOGEN, URINE AUTO 0.2 mg/dL (0.0-2.0); WBC, URINE AUTO 8 /HPF (0-3)
== END 2024-03-22 02:35 | disposition home or self-care (01) ==
LOC: M LDO 00:52
PROVIDERS: ATTEND Obstetrics & Gynecology
DX: O26.892 Other specified pregnancy related conditions, second trimester (principal); R10.84 Generalized abdominal pain; Z3A.27 27 weeks gestation of pregnancy
CPT/HCPCS: 59025; 81001; G0463